=== PATIENT | female | born 1985 | race American Indian/Alaskan Native ===

== ENCOUNTER 2016-03-19 09:12 | Emergency (ER) | payer SELFPAY ==
[2016-03-19 09:28] VITALS: BP 115/77
[2016-03-19] MEDS ORDERED: TORADOL IM ONE (09:53)
--- NOTE | 2016-03-19 11:34 | Emergency Department Report ---
ED Back Pain/Injury HPI - General Chief Complaint: Back Pain/Injury Stated Complaint: LOWER BACK ACHES Time Seen by Provider: 03/19/16 09:50 Source: patient Limitations: No Limitations - History of Present Illness Initial Comments: 30 y/o female complain of back pain after prolong riding in car for 6 hours . Complaint: back pain -: This morning Similar Symptoms Previously: No Place: other (driving in car ) Radiation: none Severity: mild Severity scale (0 -10): 5 Quality: aching Consistency: intermittent Improves With: movement Worsens With: none Context: other (driving for 6 hiurs ) Associated Symptoms: denies other symptoms - Related Data Previous Rx's Medication Instructions Recorded Last Taken Type Ibuprofen [Motrin] 600 mg PO Q8H PRN #15 tablet 03/19/16 Unknown Rx methOCARBAMOL [Robaxin TAB] 500 mg PO BID #15 tab 03/19/16 Unknown Rx Allergies Allergy/AdvReac Type Severity Reaction Status Date / Time No Known Allergies Allergy Unverified 03/19/16 09:25 ED Review of Systems ROS: Stated complaint: LOWER BACK ACHES Other details as noted in HPI Constitutional: denies: chills, fever Eyes: denies: eye pain, eye discharge, vision change ENT: denies: ear pain, throat pain Respiratory: denies: cough, shortness of breath, wheezing Cardiovascular: denies: chest pain, palpitations Endocrine: no symptoms reported Gastrointestinal: denies: abdominal pain, nausea, diarrhea Genitourinary: denies: urgency, dysuria, discharge Musculoskeletal: back pain. denies: joint swelling, arthralgia Skin: denies: rash, lesions Neurological: denies: headache, weakness, paresthesias Psychiatric: denies: anxiety, depression Hematological/Lymphatic: denies: easy bleeding, easy bruising ED Past Medical Hx - Past Medical History Previous Medical History?: Yes Additional medical history: vaginal delivery x 4 - Surgical History Past Surgical History?: No - Social History Smoking Status: Former Smoker Substance Use Type: Alcohol - Medications Home Medications: Home Medications Medication Instructions Recorded Confirmed Last Taken Type Ibuprofen [Motrin] 600 mg PO Q8H PRN #15 tablet 03/19/16 Unknown Rx methOCARBAMOL [Robaxin TAB] 500 mg PO BID #15 tab 03/19/16 Unknown Rx ED Physical Exam - General Limitations: No Limitations General appearance: alert, in no apparent distress - Head Head exam: Present: atraumatic, normocephalic - Eye Eye exam: Present: normal appearance - ENT ENT exam: Present: mucous membranes moist - Neck Neck exam: Present: normal inspection - Respiratory Respiratory exam: Present: normal lung sounds bilaterally. Absent: respiratory distress - Cardiovascular Cardiovascular Exam: Present: regular rate, normal rhythm. Absent: systolic murmur, diastolic murmur, rubs, gallop - GI/Abdominal GI/Abdominal exam: Present: soft, normal bowel sounds - Extremities Exam Extremities exam: Present: normal inspection - Back Exam Back exam: Present: normal inspection, full ROM, muscle spasm. Absent: tenderness, CVA tenderness (R), CVA tenderness (L) - Neurological Exam Neurological exam: Present: alert, oriented X3 - Psychiatric Psychiatric exam: Present: normal affect, normal mood - Skin Skin exam: Present: warm, dry, intact, normal color. Absent: rash ED Course Vital Signs 03/19/16 09:25 Temperature 99.6 F Pulse Rate 108 H Respiratory 18 Rate Blood Pressure 115/77 O2 Sat by Pulse 99 Oximetry ED Medical Decision Making - Medical Decision Making low back pain after prolong driving for over 6 hour pt was given toradal 60 mg im with relief Critical care attestation.: If time is entered above; I have spent that time in minutes in the direct care of this critically ill patient, excluding procedure time. ED Disposition Clinical Impression: Low back pain Qualifiers: Chronicity: acute Back pain laterality: bilateral Sciatica presence: without sciatica Qualified Code(s): M54.5 - Low back pain Disposition: DISCHARGED TO HOME OR SELFCARE Is pt being admited?: No Does the pt Need Aspirin: No Condition: Stable Instructions: Back Pain (ED) Additional Instructions: may apply heat Prescriptions: Ibuprofen [Motrin] 600 mg PO Q8H PRN #15 tablet PRN Reason: Pain methOCARBAMOL [Robaxin TAB] 500 mg PO BID #15 tab Referrals: PRIMARY CARE, [Primary Care Provider] - 3-5 Days [facility] [Outside] - 3-5 Days Time of Disposition: 11:34
[2016-03-21] MEDS ORDERED: NACL 0.9% 250ML 250 ML ONE (20:51)
== END 2016-03-19 11:39 | disposition home or self-care (01) ==
LOC: ED 09:12
DX: M54.5 Low back pain (principal); Z87.891 Personal history of nicotine dependence
CPT/HCPCS: 96372; 99282; J1885

== ENCOUNTER 2016-03-21 12:36 | Inpatient (IN) | payer SELFPAY ==
[2016-03-21] MEDS ORDERED: TYLENOL PO ONE (13:12)
--- NOTE | 2016-03-21 14:10 | Emergency Department Report ---
Chief Complaint: Dizziness Stated Complaint: DIZZINESS/LOWER BACK PAIN Time Seen by Provider: 03/21/16 14:05 - HPI History of Present Illness: 30-year-old female comes in for complaint of lower back pain mostly on the left. Complains of neck pain and headache when she coughs. She does report feeling dizzy. Denies any nausea vomiting shortness of breath or chest pain. She is not sure when her last LMP she's been on Depo-Provera she did not receive her shot in February. - Exam Vital Signs: Vital Signs 03/21/16 03/21/16 03/21/16 12:56 13:11 13:18 Temperature 98.7 F 102.7 F H Pulse Rate 136 H Respiratory 18 18 Rate Blood Pressure 98/67 O2 Sat by Pulse 99 Oximetry Physical Exam: Patient is alert and oriented 3. Cardiovascular tachycardic abdomen soft tenderness to the left upper and left CVA. MSE screening note: Focused history and physical exam performed. Due to findings the following was ordered: CBC BMP UA hCG patient be evaluated by the main ER ED Disposition for MSE Condition: Stable
[2016-03-21 14:35] LABS: Hemoglobin 12.1 gm/dl (10.1-14.3); Mean Corpuscular HGB Conc 33 % (30-34); Mean Corpuscular Hemoglobin 30 pg (28-32); Mean Corpuscular Volume 92 fl (79-97); Platelet Count 202 K/mm3 (140-440); Red Blood Count 4.04 M/mm3 (3.65-5.03); Red Cell Distribution Width 13.7 % (13.2-15.2); White Blood Count 12.5 K/mm3 (4.5-11.0)
[2016-03-21 14:54] LABS: Bacteria,Urine 1+ /HPF (Negative); Bilirubin,Urine NEG (Negative); Blood,Urine SM (Negative); Ketones,Urine TR mg/dL (Negative); Leukocyte Esterase,Urine LG (Negative); Mucus,Urine 1+ /HPF; Nitrite,Urine NEG (Negative); WBC,Urine > 182.0 /HPF (0.0-6.0)
[2016-03-21 14:56] LABS: Anion Gap 22 mmol/L; Blood Urea Nitrogen 6 mg/dL (7-17); Calcium 8.8 mg/dL (8.4-10.2); Carbon Dioxide 21 mmol/L (22-30); Chloride 92.7 mmol/L (98-107); Glucose 103 mg/dL (65-100); Sodium 133 mmol/L (137-145)
[2016-03-21 15:03] LABS: Potassium 2.9 mmol/L (3.6-5.0)
[2016-03-21] MEDS ORDERED: TORADOL IV ONE (17:10)
[2016-03-21] MEDS ORDERED: K-DUR PO ONE (17:11)
--- NOTE | 2016-03-21 17:13 | Emergency Department Report ---
ED General Adult HPI - General Chief complaint: Dizziness Stated complaint: DIZZINESS/LOWER BACK PAIN Time Seen by Provider: 03/21/16 14:05 Source: patient, RN notes reviewed, old records reviewed Mode of arrival: Ambulatory Limitations: No Limitations - History of Present Illness Initial comments: This is a 30-year-old female, previously unknown to me. She just moved here from [place]. She presents to the ER complaining of lower back pain. The back pain is sharp. She reports the pain radiates up to her neck. There is no neck stiffness. She has a mild headache. There is no photophobia. There is no phonophobia. She also complains of dizziness. sHe complains of generalized weakness. It increases with palpation and percussion. Patient's symptoms are constant. They worse with physical exertion. They decrease with rest. -: Gradual, days(s) Location: back Severity scale (0 -10): 6 Quality: aching Improves with: rest Associated Symptoms: cough, fever/chills, headaches, loss of appetite, weakness - Related Data Previous Rx's Medication Instructions Recorded Last Taken Type Ibuprofen [Motrin] 600 mg PO Q8H PRN #15 tablet 03/19/16 Unknown Rx methOCARBAMOL [Robaxin TAB] 500 mg PO BID #15 tab 03/19/16 Unknown Rx Allergies Allergy/AdvReac Type Severity Reaction Status Date / Time No Known Allergies Allergy Unverified 03/19/16 09:25 ED Review of Systems ROS: Stated complaint: DIZZINESS/LOWER BACK PAIN Other details as noted in HPI Constitutional: chills, fever, malaise Eyes: denies: eye discharge ENT: denies: epistaxis Respiratory: cough Cardiovascular: denies: chest pain Gastrointestinal: as per HPI. denies: abdominal pain Genitourinary: frequency Musculoskeletal: back pain Skin: denies: lesions Neurological: headache, weakness ED Past Medical Hx - Past Medical History Additional medical history: vaginal delivery x 4 - Social History Smoking Status: Former Smoker Substance Use Type: Alcohol - Medications Home Medications: Home Medications Medication Instructions Recorded Confirmed Last Taken Type Ibuprofen [Motrin] 600 mg PO Q8H PRN #15 tablet 03/19/16 Unknown Rx methOCARBAMOL [Robaxin TAB] 500 mg PO BID #15 tab 03/19/16 Unknown Rx ED Physical Exam - General Limitations: No Limitations General appearance: alert, in no apparent distress - Head Head exam: Present: atraumatic, normocephalic - Eye Eye exam: Present: normal appearance, PERRL, EOMI. Absent: nystagmus - ENT ENT exam: Present: normal exam, normal orophraynx, mucous membranes moist, TM's normal bilaterally, normal external ear exam - Neck Neck exam: Present: normal inspection, full ROM, other (the neck is supple with full range of motion. There is a negative jolt accentuation test.). Absent: tenderness, meningismus - Respiratory Respiratory exam: Present: normal lung sounds bilaterally. Absent: respiratory distress, wheezes, rales, rhonchi, stridor, chest wall tenderness, accessory muscle use - Cardiovascular Cardiovascular Exam: Present: normal rhythm, tachycardia, normal heart sounds. Absent: systolic murmur, diastolic murmur, rubs, gallop - GI/Abdominal GI/Abdominal exam: Present: soft, normal bowel sounds. Absent: distended, tenderness, guarding, rebound, rigid, pulsatile mass - Extremities Exam Extremities exam: Present: normal inspection, full ROM, normal capillary refill. Absent: pedal edema, joint swelling, calf tenderness - Back Exam Back exam: Present: normal inspection, full ROM, CVA tenderness (L). Absent: tenderness - Neurological Exam Neurological exam: Present: alert, oriented X3, other (Extraocular movements intact. Tongue midline. No facial droop. Facial sensation intact to light touch in the V1, V2, V3 distribution bilaterally. 5 and 5 strength in 4 extremities.. Sensation is intact to light touch in 4 extremities.). Absent: motor sensory deficit - Psychiatric Psychiatric exam: Present: normal affect, normal mood - Skin Skin exam: Present: warm, dry, intact, normal color. Absent: rash ED Course Vital Signs 03/21/16 03/21/16 03/21/16 12:56 13:11 13:18 Temperature 98.7 F 102.7 F H Pulse Rate 136 H Respiratory 18 18 Rate Blood Pressure 98/67 Blood Pressure [Left] O2 Sat by Pulse 99 Oximetry 03/21/16 03/21/16 03/21/16 17:00 18:00 18:23 Temperature Pulse Rate 72 67 Respiratory 18 18 18 Rate Blood Pressure Blood Pressure 148/98 148/98 [Left] O2 Sat by Pulse 99 99 99 Oximetry - Reevaluation(s) Reevaluation #1: 03/21/16 18:13 Differential diagnosis: Urinary tract infection, sepsis, pyelonephritis Assessment and plan: 30-year-old female with fever, tachycardia, leukocytosis, urinary frequency, left-sided CVA tenderness, urinalysis that suggests urinary tract infection. The patient has no meningeal signs, she is not a 4 pack, she hasn't appropriate mental status, she is noted to be playing on a cellular phone. For these reasons, and her objective laboratory evidence and urinalysis , as well as her physical exam findings, I think it is very unlikely that she has meningitis. While I was interviewing the patient, she was noted to be hypotensive with a blood pressure in the 80s. Even that she meets sepsis criteria with pyelonephritis, this will have a primary care doctor, and that this is her second visit in the past few days for similar complaint, I elected to admit the patient. I have discussed the case with the Hospital physician, Dr. Guo, who graciously accepts the patient to his service. She will be loaded with 2 g of normal saline, be given 2 g of ceftriaxone, blood cultures and urine cultures to be drawn as per sepsis protocol, and she will be admitted for further management. 03/21/16 18:16 ED Medical Decision Making - Lab Data Result diagrams: 03/21/16 14:23 03/21/16 14:23 Vital Signs 03/21/16 03/21/16 03/21/16 12:56 13:11 13:18 Temperature 98.7 F 102.7 F H Pulse Rate 136 H Respiratory 18 18 Rate Blood Pressure 98/67 O2 Sat by Pulse 99 Oximetry Labs 03/21/16 03/21/16 03/21/16 14:23 14:23 14:23 WBC 12.5 H RBC 4.04 Hgb 12.1 Hct 37.0 MCV 92 MCH 30 MCHC 33 RDW 13.7 Plt Count 202 Sodium 133 L Potassium 2.9 L* Carbon Dioxide 21 L BUN 6 L Creatinine 0.6 L Estimated GFR > 60 BUN/Creatinine Ratio 10.00 Glucose 103 H Lactic Acid Calcium 8.8 Magnesium 1.9 Urine Color Urine Turbidity Urine pH Ur Specific [place] Urine Protein Urine Glucose (UA) Urine Ketones Urine Blood Urine Nitrite Ur Reducing Substances Urine Bilirubin Urine Ictotest Urine Urobilinogen Ur Leukocyte Esterase Urine WBC (Auto) Urine RBC (Auto) U Epithel Cells (Auto) Urine Bacteria (Auto) Urine Mucus Urine HCG, Qual 03/21/16 03/21/16 14:41 17:30 WBC RBC Hgb Hct MCV MCH MCHC RDW Plt Count Sodium Potassium Carbon Dioxide BUN Creatinine Estimated GFR BUN/Creatinine Ratio Glucose Lactic Acid 1.0 Calcium Magnesium Urine Color Yellow Urine Turbidity Cloudy Urine pH 6.0 Ur Specific [place] 1.013 Urine Protein 100 mg/dl Urine Glucose (UA) Neg Urine Ketones Tr Urine Blood Sm Urine Nitrite Neg Ur Reducing Substances Not Reportable Urine Bilirubin Neg Urine Ictotest Not Reportable Urine Urobilinogen 2.0 Ur Leukocyte Esterase Lg Urine WBC (Auto) > 182.0 H Urine RBC (Auto) 7.0 U Epithel Cells (Auto) 5.0 Urine Bacteria (Auto) 1+ Urine Mucus 1+ Urine HCG, Qual Negative - EKG Data When compared to previous EKG there are: previous EKG unavailable 03/21/16 18:17 sinus tachcardia 123 bpm, normal axis normal intervals no stemi Critical care attestation.: If time is entered above; I have spent that time in minutes in the direct care of this critically ill patient, excluding procedure time. ED Disposition Clinical Impression: Pyelonephritis, Hypokalemia, Sepsis Disposition: OP ADMITTED IP TO THIS HOSP Is pt being admited?: Yes Does the pt Need Aspirin: No Condition: Good
--- NOTE | 2016-03-21 17:19 | Admit Criteria Form ---
Admission Criteria Documentation: SEPSIS and OTHER FEBRILE ILLNESS, W/O FOCAL INFECTION Clinical Indications for Admission to Inpatient Care ( Place 'X' for any and all applicable criteria): Admission is indicated for ANY ONE of the following (1)(2)(3)(4): [ ] I. Bacteremia [ X]II. Suspected or identified specific infection requiring hospitalization (eg, meningitis, endocarditis) [X ]III. Hemodynamic instability [ ]IV. Altered mental status [ X]V. Failure or unavailability of outpatient antimicrobial treatment [ ]. Hypoxemia [ ]VII. Seizures [ ]VIII. High-risk febrile neutropenia [ ]IX. Need for parenteral antibiotic in patient who is likely to abuse vascular access device (eg, injection drug user) [A](7) [ ]X. Temperature greater than 104.9 degrees F (40.5 degrees C) (oral) [ ]XI. Inpatient admission required rather than observation care because of ANY ONE of the following: [ ]1) Specific infection identified that is too severe for outpatient treatment or observation care trial [ ]2) Metabolic disorder (eg, hypoglycemia, hyperglycemia, metabolic acidosis) that is severe or persistent [ ]3) Temperature greater than 103.1 degrees F (39.5 degrees C) ( oral) that is not responsive to observation care treatment [ ]4) IV fluid to replace significant ongoing (eg, for over 24 hours) losses (> 3 L/m2 per day) [ ]5) Supplemental oxygen or respiratory treatments for over 24 hours that is performable only in acute inpatient setting [ ]6) Parenteral nutrition regimen need that must be implemented on inpatient basis [ ]7) Strict or protective (eg, laminar flow) isolation [ ]8) Other condition, treatment or monitoring requiring inpatient admission Extended stay beyond goal length of stay may be needed for(1)(3) [ ]a) Sepsis or septic shock(22) [ ]b) Positive blood cultures [ ]c) Insufficient oral intake [ ]d) High-risk febrile neutropenia(29)(30) [ ]e) Continued fever and clinical instability [ ]f) Clinically active comorbid illness (e.g,heart failure, renal failure , diabetes) The original [facility] [employer] content created by [employer] has been revised. The portions of the content which have been revised are identified through the use of italic text or in bold, and [facility] [employer] has neither reviewed nor approved the modified material. All other unmodified content is copyright [facility]. Please see references footnoted in the original [facility] edition 2016 Admission Criteria Met: Yes
[2016-03-21] MEDS ORDERED: NACL 0.9% 1000 ML 2,000 ML ONE (17:58)
[2016-03-21] MEDS ORDERED: NACL 0.9% 500 ML IV SCH (18:00)
[2016-03-21] MEDS: KCL 10MEQ/100ML 100 ML IV SCH ×4 (18:21→23:20)
[2016-03-21] MEDS ORDERED: ROCEPHIN/NS 2 GM/100 ML 100 ML IV ONE (18:30)
[2016-03-21] MEDS ORDERED: MOTRIN PO PRN (19:21)
--- NOTE | 2016-03-21 19:21 | Event Note ---
Date: 03/21/16 See H/p in reports Acute pyelonephtitis Hypokalemia Cervical pain
[2016-03-21] MEDS ORDERED: MILK OF MAGNESIA PO PRN (19:22)
[2016-03-21] MEDS ORDERED: DULCOLAX PR PRN (19:22)
[2016-03-21] MEDS ORDERED: ZOFRAN IV PRN (19:22)
[2016-03-21] MEDS ORDERED: DILAUDID IV PRN (19:22)
[2016-03-21] MEDS ORDERED: TYLENOL PO PRN (19:22)
[2016-03-21] MEDS ORDERED: KCL 10MEQ/100ML 100 ML IV ONE ×2 (20:46→22:04)
[2016-03-21] MEDS ORDERED: LOVENOX SUB-Q ONE (20:46)
[2016-03-21] MEDS: LOVENOX SUB-Q SCH (21:07)
[2016-03-21] MEDS: ROBAXIN PO SCH (22:01)
[2016-03-21] MEDS: D5NS 1,000 ML IV SCH (23:20)
[2016-03-22] MEDS ORDERED: K-DUR PO ONE (00:38)
[2016-03-22] MEDS: KCL 10MEQ/100ML 100 ML IV SCH ×2 (01:29→05:21)
--- NOTE | 2016-03-22 01:44 | History and Physical Report ---
CHIEF COMPLAINT: Left flank pain and headache. HISTORY OF PRESENT ILLNESS: A 30-year-old female moved from [place] comes in for left flank pain and headache. Also, neck pain but no neck stiffness. No photophobia. Also low-grade fever. Dysuria present. PAST MEDICAL HISTORY: None. PAST SURGICAL HISTORY: Vaginal delivery x 4. SOCIAL HISTORY: Former smoker. Alcohol occasionally. FAMILY HISTORY: Hypertension. CURRENT MEDICATIONS: Ibuprofen and Robaxin. REVIEW OF SYSTEMS: Significant for left flank pain and low grade fever, fever ranging from 98.7 and 102.7 and nonspecific complaints like headache and neck pain. Otherwise, review of systems is essentially negative. LABORATORY DATA: WBC is 12.5, H and H are 12.1 and 37.0, and platelet count is 202,000. Sodium is 133, potassium is 2.9, bicarbonate is 21, BUN and creatinine are 6 and 0.6. Urine shows more than 182 white cells. Glucose is 103. Lactic acid is 1.0. PHYSICAL EXAMINATION: GENERAL: On examination, young female, cooperative during examination. VITAL SIGNS: Initial blood pressure was low 98/67, went up to 148/98, temperature is 102.7, and pulse is 136. HEENT: Unremarkable. NECK: Supple, no lymphadenopathy, no thyromegaly. LUNGS: Clear to auscultation and percussion. Good air entry. CARDIOVASCULAR: S1, S2 heard. No gallop, no murmur, no rub. Apical impulse in left fifth intercostal space and midclavicular line. ABDOMEN: Left flank tenderness present. No guarding, no rigidity. Hernial orifices are normal. EXTREMITIES: Good pedal pulses. No pedal edema. CENTRAL NERVOUS SYSTEM: Alert and oriented x 4, nonfocal exam. Labs are significant for white count of 12,500 and potassium of 2.9 and urine white cells are more than 182. ASSESSMENT AND PLAN: 1. Acute pyelonephritis. The patient is started on IV Rocephin 2 gm IV piggyback pending urine cultures. 2. Hypotension, transient up with IV fluids. Continue IV fluids. 3. Hypokalemia, being supplemented. 4. Deep venous thrombosis prophylaxis, Lovenox 40 mg subcutaneous daily. [facility]# [id number] VSM/NTS MTDD
[2016-03-22 06:51] LABS: Hematocrit 34.6 % (30.3-42.9); Hemoglobin 11.5 gm/dl (10.1-14.3); Mean Corpuscular HGB Conc 33 % (30-34); Mean Corpuscular Hemoglobin 30 pg (28-32); Mean Corpuscular Volume 91 fl (79-97); Platelet Count 192 K/mm3 (140-440); Red Cell Distribution Width 13.9 % (13.2-15.2); White Blood Count 9.6 K/mm3 (4.5-11.0)
[2016-03-22 07:16] LABS: Alanine Aminotransferase 28 units/L (7-56); Albumin 2.9 g/dL (3.9-5); Albumin/Globulin Ratio 0.9 %; Alkaline Phosphatase 83 units/L (35-129); Anion Gap 19 mmol/L; Bilirubin,Total 0.6 mg/dL (0.1-1.2); Blood Urea Nitrogen 6 mg/dL (7-17); Calcium 8.1 mg/dL (8.4-10.2); Carbon Dioxide 21 mmol/L (22-30); Chloride 102.9 mmol/L (98-107); Glucose 93 mg/dL (65-100); Potassium 3.8 mmol/L (3.6-5.0); Sodium 139 mmol/L (137-145); Total Protein 6.1 g/dL (6.3-8.2)
[2016-03-22 08:52] LABS: Anisocytosis 1+; Basophils % (Manual) 0 % (0.0-1.8); Blastocytes % (Manual) 0 %; Eosinophils % (Manual) 0 % (0.0-4.3)
[2016-03-22 08:53] LABS: Diff Status Complete; Poikilocytosis 1+
[2016-03-22] MEDS: D5NS 1,000 ML IV SCH (11:00)
[2016-03-22] MEDS: LOVENOX SUB-Q SCH (11:06)
[2016-03-22] MEDS: ROBAXIN PO SCH ×2 (11:06→22:26)
[2016-03-22] MEDS ORDERED: FLUARIX QUAD 2016-2017(36 MOS+) IM ONE (12:00)
--- NOTE | 2016-03-22 16:36 | Progress Note ---
Assessment and Plan Assessment and plan: Sepsis with UTI Acute left pyelonephritis Hypotension, the due to dehydration and sepsis Hypokalemia, likely due to poor oral intake Plan: Continue IV antibiotic Monitor vitals Follow urine culture and blood culture Replace electrolytes as needed Monitor BMP History Interval history: Patient seen and examined. Medical records and medication list reviewed. No acute event overnight noted by the RN. Patient denies any chest pain or difficulty breathing. Patient is tolerating diet. Vision does have left flank pain, states that is better than yesterday This morning but her temperature was 103F Discussed plan of care at bedside with patient. Hospitalist Physical - Physical exam Narrative exam: GENERAL: well-developed and well-nourished -[place] female lying on bed appeared to be in no discomfort. HEENT: Normocephalic. Atraumatic. No conjunctival congestion or icterus. Patient has moist mucous membranes. NECK: Supple. Trachea midline. CHEST/LUNGS: Clear to auscultated bilaterally, breathing nonlabored. No wheezes crackles or rhonchi. HEART/CARDIOVASCULAR: Regular in rate and rhythm. S1 and S2 positive. ABDOMEN: Abdomen is soft, left CVA tenderness. Patient has normal bowel sounds. SKIN: There is no rash. Warm and dry. NEURO: No focal motor deficit. Follows command. MUSCULOSKELETAL: No joint effusion or tenderness. EXTRIMITY: No edema, no cyanosis or clubbing. PSYCH: Cooperative. - Constitutional Vitals: Temp Pulse Resp BP Pulse Ox 103 F H 100 H 20 98/67 99 03/22/16 07:05 03/22/16 07:05 03/22/16 07:05 03/22/16 07:05 03/22/16 07:05 Results - Labs CBC & Chem 7: 03/22/16 06:06 03/22/16 06:06 Labs: Laboratory Last Values WBC 9.6 K/mm3 (4.5-11.0) 03/22/16 06:06 RBC 3.80 M/mm3 (3.65-5.03) 03/22/16 06:06 Hgb 11.5 gm/dl (10.1-14.3) 03/22/16 06:06 Hct 34.6 % (30.3-42.9) 03/22/16 06:06 MCV 91 fl (79-97) 03/22/16 06:06 MCH 30 pg (28-32) 03/22/16 06:06 MCHC 33 % (30-34) 03/22/16 06:06 RDW 13.9 % (13.2-15.2) 03/22/16 06:06 Plt Count 192 K/mm3 (140-440) 03/22/16 06:06 [place] % (Auto) Crm Marketing Analyst 03/22/16 06:06 Add Manual Diff Complete 03/22/16 06:06 Total Counted 100 03/22/16 06:06 Seg Neuts % (Manual) 68.0 % (40.0-70.0) 03/22/16 06:06 Band Neutrophils % 7.0 % 03/22/16 06:06 Lymphocytes % (Manual) 9.0 % (13.4-35.0) L 03/22/16 06:06 Reactive Lymphs % (Man) 2.0 % 03/22/16 06:06 Monocytes % (Manual) 14.0 % (0.0-7.3) H 03/22/16 06:06 Eosinophils % (Manual) 0 % (0.0-4.3) 03/22/16 06:06 Basophils % (Manual) 0 % (0.0-1.8) 03/22/16 06:06 Metamyelocytes % 0 % 03/22/16 06:06 Myelocytes % 0 % 03/22/16 06:06 Promyelocytes % 0 % 03/22/16 06:06 Blast Cells % 0 % 03/22/16 06:06 Nucleated RBC % Not Reportable 03/22/16 06:06 Seg Neutrophils # Man 6.5 K/mm3 (1.8-7.7) 03/22/16 06:06 Band Neutrophils # 0.7 K/mm3 03/22/16 06:06 Lymphocytes # (Manual) 0.9 K/mm3 (1.2-5.4) L 03/22/16 06:06 Abs React Lymphs (Man) 0.2 K/mm3 03/22/16 06:06 Monocytes # (Manual) 1.3 K/mm3 (0.0-0.8) H 03/22/16 06:06 Eosinophils # (Manual) 0.0 K/mm3 (0.0-0.4) 03/22/16 06:06 Basophils # (Manual) 0.0 K/mm3 (0.0-0.1) 03/22/16 06:06 Metamyelocytes # 0.0 K/mm3 03/22/16 06:06 Myelocytes # 0.0 K/mm3 03/22/16 06:06 Promyelocytes # 0.0 K/mm3 03/22/16 06:06 Blast Cells # 0.0 K/mm3 03/22/16 06:06 WBC Morphology Not Reportable 03/22/16 06:06 Hypersegmented Neuts Not Reportable 03/22/16 06:06 Hyposegmented Neuts Not Reportable 03/22/16 06:06 Hypogranular Neuts Not Reportable 03/22/16 06:06 Smudge Cells Not Reportable 03/22/16 06:06 Toxic Granulation Not Reportable 03/22/16 06:06 Toxic Vacuolation Not Reportable 03/22/16 06:06 Dohle Bodies Not Reportable 03/22/16 06:06 Pelger-Huet Anomaly Not Reportable 03/22/16 06:06 Karsten Rods Not Reportable 03/22/16 06:06 Platelet Estimate Appears normal 03/22/16 06:06 Clumped Platelets Not Reportable 03/22/16 06:06 Plt Clumps, EDTA Not Reportable 03/22/16 06:06 Large Platelets Not Reportable 03/22/16 06:06 Giant Platelets Not Reportable 03/22/16 06:06 Platelet Satelliting Not Reportable 03/22/16 06:06 Plt Morphology Comment Not Reportable 03/22/16 06:06 RBC Morphology Not Reportable 03/22/16 06:06 Dimorphic RBCs Not Reportable 03/22/16 06:06 Polychromasia Not Reportable 03/22/16 06:06 Hypochromasia Not Reportable 03/22/16 06:06 Poikilocytosis 1+ 03/22/16 06:06 Anisocytosis 1+ 03/22/16 06:06 Microcytosis Not Reportable 03/22/16 06:06 Macrocytosis Not Reportable 03/22/16 06:06 Spherocytes Not Reportable 03/22/16 06:06 Pappenheimer Bodies Not Reportable 03/22/16 06:06 Sickle Cells Not Reportable 03/22/16 06:06 Target Cells Not Reportable 03/22/16 06:06 Tear Drop Cells Not Reportable 03/22/16 06:06 Ovalocytes Not Reportable 03/22/16 06:06 Helmet Cells Not Reportable 03/22/16 06:06 [place] Bodies Not Reportable 03/22/16 06:06 [place] Rings Not Reportable 03/22/16 06:06 Jony Cells Not Reportable 03/22/16 06:06 Bite Cells Not Reportable 03/22/16 06:06 Crenated Cell Not Reportable 03/22/16 06:06 Elliptocytes Not Reportable 03/22/16 06:06 Acanthocytes (Spur) Not Reportable 03/22/16 06:06 Rouleaux Not Reportable 03/22/16 06:06 Hemoglobin C Crystals Not Reportable 03/22/16 06:06 Schistocytes Not Reportable 03/22/16 06:06 Malaria parasites Not Reportable 03/22/16 06:06 Allan Bodies Not Reportable 03/22/16 06:06 Hem Pathologist Commnt No 03/22/16 06:06 Sodium 139 mmol/L (137-145) 03/22/16 06:06 Potassium 3.8 mmol/L (3.6-5.0) D 03/22/16 06:06 Chloride 102.9 mmol/L (98-107) 03/22/16 06:06 Carbon Dioxide 21 mmol/L (22-30) L 03/22/16 06:06 Anion Gap 19 mmol/L 03/22/16 06:06 BUN 6 mg/dL (7-17) L 03/22/16 06:06 Creatinine 0.4 mg/dL (0.7-1.2) L 03/22/16 06:06 Estimated GFR > 60 ml/min 03/22/16 06:06 BUN/Creatinine Ratio 15.00 % 03/22/16 06:06 Glucose 93 mg/dL (65-100) 03/22/16 06:06 Lactic Acid 1.0 mmol/L (0.7-2.0) 03/21/16 17:30 Calcium 8.1 mg/dL (8.4-10.2) L 03/22/16 06:06 Magnesium 1.9 mg/dL (1.7-2.3) 03/21/16 14:23 Total Bilirubin 0.6 mg/dL (0.1-1.2) 03/22/16 06:06 AST 35 units/L (5-40) 03/22/16 06:06 ALT 28 units/L (7-56) 03/22/16 06:06 Alkaline Phosphatase 83 units/L (35-129) 03/22/16 06:06 Total Protein 6.1 g/dL (6.3-8.2) L 03/22/16 06:06 Albumin 2.9 g/dL (3.9-5) L 03/22/16 06:06 Albumin/Globulin Ratio 0.9 % 03/22/16 06:06 Urine Color Yellow (Yellow) 03/21/16 14:41 Urine Turbidity Cloudy (Clear) 03/21/16 14:41 Urine pH 6.0 (5.0-7.0) 03/21/16 14:41 Ur Specific [place] 1.013 (1.003-1.030) 03/21/16 14:41 Urine Protein 100 mg/dl mg/dL (Negative) 03/21/16 14:41 Urine Glucose (UA) Neg mg/dL (Negative) 03/21/16 14:41 Urine Ketones Tr mg/dL (Negative) 03/21/16 14:41 Urine Blood Sm (Negative) 03/21/16 14:41 Urine Nitrite Neg (Negative) 03/21/16 14:41 Ur Reducing Substances Not Reportable 03/21/16 14:41 Urine Bilirubin Neg (Negative) 03/21/16 14:41 Urine Ictotest Not Reportable 03/21/16 14:41 Urine Urobilinogen 2.0 mg/dL (<2.0) 03/21/16 14:41 Ur Leukocyte Esterase Lg (Negative) 03/21/16 14:41 Urine WBC (Auto) > 182.0 /HPF (0.0-6.0) H 03/21/16 14:41 Urine RBC (Auto) 7.0 /HPF (0.0-6.0) 03/21/16 14:41 U Epithel Cells (Auto) 5.0 /HPF (0-13.0) 03/21/16 14:41 Urine Bacteria (Auto) 1+ /HPF (Negative) 03/21/16 14:41 Urine Mucus 1+ /HPF 03/21/16 14:41 Urine HCG, Qual Negative (Negative) 03/21/16 14:41
[2016-03-22] MEDS ORDERED: ROCEPHIN/NS 2 GM/100 ML 100 ML IV SCH (22:00)
[2016-03-23] MEDS: ROBAXIN PO SCH (09:51)
[2016-03-23] MEDS: LOVENOX SUB-Q SCH (09:51)
[2016-03-23] MEDS ORDERED: ZOSYN/NS 4.5GM/100ML 100 ML IV SCH (14:00)
--- NOTE | 2016-03-23 15:16 | Progress Note ---
Hospitalist Physical - Constitutional Vitals: Temp Pulse Resp BP Pulse Ox 99.4 F 80 18 105/76 100 03/23/16 12:05 03/23/16 07:15 03/23/16 12:05 03/23/16 07:15 03/23/16 12:05 Results - Labs CBC & Chem 7: 03/22/16 06:06 03/22/16 06:06 Labs: Laboratory Last Values WBC 9.6 K/mm3 (4.5-11.0) 03/22/16 06:06 RBC 3.80 M/mm3 (3.65-5.03) 03/22/16 06:06 Hgb 11.5 gm/dl (10.1-14.3) 03/22/16 06:06 Hct 34.6 % (30.3-42.9) 03/22/16 06:06 MCV 91 fl (79-97) 03/22/16 06:06 MCH 30 pg (28-32) 03/22/16 06:06 MCHC 33 % (30-34) 03/22/16 06:06 RDW 13.9 % (13.2-15.2) 03/22/16 06:06 Plt Count 192 K/mm3 (140-440) 03/22/16 06:06 [place] % (Auto) Data Processing Supervisor 03/22/16 06:06 Add Manual Diff Complete 03/22/16 06:06 Total Counted 100 03/22/16 06:06 Seg Neuts % (Manual) 68.0 % (40.0-70.0) 03/22/16 06:06 Band Neutrophils % 7.0 % 03/22/16 06:06 Lymphocytes % (Manual) 9.0 % (13.4-35.0) L 03/22/16 06:06 Reactive Lymphs % (Man) 2.0 % 03/22/16 06:06 Monocytes % (Manual) 14.0 % (0.0-7.3) H 03/22/16 06:06 Eosinophils % (Manual) 0 % (0.0-4.3) 03/22/16 06:06 Basophils % (Manual) 0 % (0.0-1.8) 03/22/16 06:06 Metamyelocytes % 0 % 03/22/16 06:06 Myelocytes % 0 % 03/22/16 06:06 Promyelocytes % 0 % 03/22/16 06:06 Blast Cells % 0 % 03/22/16 06:06 Nucleated RBC % Not Reportable 03/22/16 06:06 Seg Neutrophils # Man 6.5 K/mm3 (1.8-7.7) 03/22/16 06:06 Band Neutrophils # 0.7 K/mm3 03/22/16 06:06 Lymphocytes # (Manual) 0.9 K/mm3 (1.2-5.4) L 03/22/16 06:06 Abs React Lymphs (Man) 0.2 K/mm3 03/22/16 06:06 Monocytes # (Manual) 1.3 K/mm3 (0.0-0.8) H 03/22/16 06:06 Eosinophils # (Manual) 0.0 K/mm3 (0.0-0.4) 03/22/16 06:06 Basophils # (Manual) 0.0 K/mm3 (0.0-0.1) 03/22/16 06:06 Metamyelocytes # 0.0 K/mm3 03/22/16 06:06 Myelocytes # 0.0 K/mm3 03/22/16 06:06 Promyelocytes # 0.0 K/mm3 03/22/16 06:06 Blast Cells # 0.0 K/mm3 03/22/16 06:06 WBC Morphology Not Reportable 03/22/16 06:06 Hypersegmented Neuts Not Reportable 03/22/16 06:06 Hyposegmented Neuts Not Reportable 03/22/16 06:06 Hypogranular Neuts Not Reportable 03/22/16 06:06 Smudge Cells Not Reportable 03/22/16 06:06 Toxic Granulation Not Reportable 03/22/16 06:06 Toxic Vacuolation Not Reportable 03/22/16 06:06 Dohle Bodies Not Reportable 03/22/16 06:06 Pelger-Huet Anomaly Not Reportable 03/22/16 06:06 Karsten Rods Not Reportable 03/22/16 06:06 Platelet Estimate Appears normal 03/22/16 06:06 Clumped Platelets Not Reportable 03/22/16 06:06 Plt Clumps, EDTA Not Reportable 03/22/16 06:06 Large Platelets Not Reportable 03/22/16 06:06 Giant Platelets Not Reportable 03/22/16 06:06 Platelet Satelliting Not Reportable 03/22/16 06:06 Plt Morphology Comment Not Reportable 03/22/16 06:06 RBC Morphology Not Reportable 03/22/16 06:06 Dimorphic RBCs Not Reportable 03/22/16 06:06 Polychromasia Not Reportable 03/22/16 06:06 Hypochromasia Not Reportable 03/22/16 06:06 Poikilocytosis 1+ 03/22/16 06:06 Anisocytosis 1+ 03/22/16 06:06 Microcytosis Not Reportable 03/22/16 06:06 Macrocytosis Not Reportable 03/22/16 06:06 Spherocytes Not Reportable 03/22/16 06:06 Pappenheimer Bodies Not Reportable 03/22/16 06:06 Sickle Cells Not Reportable 03/22/16 06:06 Target Cells Not Reportable 03/22/16 06:06 Tear Drop Cells Not Reportable 03/22/16 06:06 Ovalocytes Not Reportable 03/22/16 06:06 Helmet Cells Not Reportable 03/22/16 06:06 [place] Bodies Not Reportable 03/22/16 06:06 [place] Rings Not Reportable 03/22/16 06:06 [place] Cells Not Reportable 03/22/16 06:06 Bite Cells Not Reportable 03/22/16 06:06 Crenated Cell Not Reportable 03/22/16 06:06 Elliptocytes Not Reportable 03/22/16 06:06 Acanthocytes (Spur) Not Reportable 03/22/16 06:06 Rouleaux Not Reportable 03/22/16 06:06 Hemoglobin C Crystals Not Reportable 03/22/16 06:06 Schistocytes Not Reportable 03/22/16 06:06 Malaria parasites Not Reportable 03/22/16 06:06 Allan Bodies Not Reportable 03/22/16 06:06 Hem Pathologist Commnt No 03/22/16 06:06 Sodium 139 mmol/L (137-145) 03/22/16 06:06 Potassium 3.8 mmol/L (3.6-5.0) D 03/22/16 06:06 Chloride 102.9 mmol/L (98-107) 03/22/16 06:06 Carbon Dioxide 21 mmol/L (22-30) L 03/22/16 06:06 Anion Gap 19 mmol/L 03/22/16 06:06 BUN 6 mg/dL (7-17) L 03/22/16 06:06 Creatinine 0.4 mg/dL (0.7-1.2) L 03/22/16 06:06 Estimated GFR > 60 ml/min 03/22/16 06:06 BUN/Creatinine Ratio 15.00 % 03/22/16 06:06 Glucose 93 mg/dL (65-100) 03/22/16 06:06 Lactic Acid 1.0 mmol/L (0.7-2.0) 03/21/16 17:30 Calcium 8.1 mg/dL (8.4-10.2) L 03/22/16 06:06 Magnesium 1.9 mg/dL (1.7-2.3) 03/21/16 14:23 Total Bilirubin 0.6 mg/dL (0.1-1.2) 03/22/16 06:06 AST 35 units/L (5-40) 03/22/16 06:06 ALT 28 units/L (7-56) 03/22/16 06:06 Alkaline Phosphatase 83 units/L (35-129) 03/22/16 06:06 Total Protein 6.1 g/dL (6.3-8.2) L 03/22/16 06:06 Albumin 2.9 g/dL (3.9-5) L 03/22/16 06:06 Albumin/Globulin Ratio 0.9 % 03/22/16 06:06 Urine Color Yellow (Yellow) 03/21/16 14:41 Urine Turbidity Cloudy (Clear) 03/21/16 14:41 Urine pH 6.0 (5.0-7.0) 03/21/16 14:41 Ur Specific [place] 1.013 (1.003-1.030) 03/21/16 14:41 Urine Protein 100 mg/dl mg/dL (Negative) 03/21/16 14:41 Urine Glucose (UA) Neg mg/dL (Negative) 03/21/16 14:41 Urine Ketones Tr mg/dL (Negative) 03/21/16 14:41 Urine Blood Sm (Negative) 03/21/16 14:41 Urine Nitrite Neg (Negative) 03/21/16 14:41 Ur Reducing Substances Not Reportable 03/21/16 14:41 Urine Bilirubin Neg (Negative) 03/21/16 14:41 Urine Ictotest Not Reportable 03/21/16 14:41 Urine Urobilinogen 2.0 mg/dL (<2.0) 03/21/16 14:41 Ur Leukocyte Esterase Lg (Negative) 03/21/16 14:41 Urine WBC (Auto) > 182.0 /HPF (0.0-6.0) H 03/21/16 14:41 Urine RBC (Auto) 7.0 /HPF (0.0-6.0) 03/21/16 14:41 U Epithel Cells (Auto) 5.0 /HPF (0-13.0) 03/21/16 14:41 Urine Bacteria (Auto) 1+ /HPF (Negative) 03/21/16 14:41 Urine Mucus 1+ /HPF 03/21/16 14:41 Urine HCG, Qual Negative (Negative) 03/21/16 14:41
--- NOTE | 2016-03-23 17:12 | Discharge Summary ---
Providers - Providers Date of Admission: 03/21/16 19:22 Date of discharge: 03/23/16 Attending physician: MADDIE BAIRD Primary care physician: KATINA DAVEY MD Hospitalization Condition: Good Hospital course: Discharge diagnosis: Sepsis with UTI Acute left pyelonephritis Hypotension, the due to dehydration and sepsis Hypokalemia, likely due to poor oral intake Disposition: DISCHARGED TO HOME OR SELFCARE Time spent for discharge: 32 minutes Core Measure Documentation - Palliative Care Palliative Care/ Comfort Measures: Not Applicable - Core Measures Any of the following diagnoses?: none Exam - Physical Exam Narrative exam: GENERAL: well-developed and well-nourished -[place] female lying on bed appeared to be in no discomfort. HEENT: Normocephalic. Atraumatic. No conjunctival congestion or icterus. Patient has moist mucous membranes. NECK: Supple. Trachea midline. CHEST/LUNGS: Clear to auscultated bilaterally, breathing nonlabored. No wheezes crackles or rhonchi. HEART/CARDIOVASCULAR: Regular in rate and rhythm. S1 and S2 positive. ABDOMEN: Abdomen is soft, left CVA tenderness. Patient has normal bowel sounds. SKIN: There is no rash. Warm and dry. NEURO: No focal motor deficit. Follows command. MUSCULOSKELETAL: No joint effusion or tenderness. EXTRIMITY: No edema, no cyanosis or clubbing. PSYCH: Cooperative. - Constitutional Vitals: Temp Pulse Resp BP Pulse Ox 98.2 F 93 H 17 102/68 100 03/23/16 15:25 03/23/16 15:25 03/23/16 15:25 03/23/16 15:25 03/23/16 12:05 Plan Activity: advance as tolerated Weight Bearing Status: Weight Bear as Tolerated Diet: regular Follow up with: PRIMARY CARE, [Primary Care Provider] - 3-5 Days Prescriptions: Levofloxacin [Levaquin] 750 mg PO QDAY #5 tablet
[2016-03-23 19:20] VITALS: BP 109/62
== END 2016-03-23 20:06 | disposition home or self-care (01) | DRG 872 ==
LOC: ED 12:36 → 3A 19:22
PROVIDERS: ADMIT Internal Medicine; ATTEND Internal Medicine
DX: A41.9 Sepsis, unspecified organism (principal); N10 Acute pyelonephritis; N39.0 Urinary tract infection, site not specified; I95.9 Hypotension, unspecified; E87.6 Hypokalemia; Z87.891 Personal history of nicotine dependence; Z82.49 Family history of ischemic heart disease and other diseases of the circulatory system
CPT/HCPCS: 36415; 80048; 80053; 81001; 81025; 82140; 83735; 85007; 85025; 85027; 87040; 87076; 87086; 87186; 90686; 93005; 93010; 96361; 96372; 96374; 96375; J0696; J1650; J1885; J2543; J3480; J7030; J7042; J7050

== ENCOUNTER 2017-02-08 13:46 | Emergency (ER) | payer MEDICAID, OTHER ==
[2017-02-08 14:57] LABS: Bilirubin,Urine NEG (Negative); Blood,Urine MOD (Negative); Ketones,Urine NEG (Negative); Leukocyte Esterase,Urine LG (Negative); Mucus,Urine FEW /HPF; Nitrite,Urine POS (Negative); Urobilinogen,Urine < 2.0 mg/dL (<2.0)
[2017-02-08 14:58] LABS: WBC,Urine > 182.0 /HPF (0.0-6.0)
[2017-02-08] MEDS ORDERED: ROCEPHIN/NS 1 GM/50 ML 1 GM/50 ML BAG IV ONE (16:43)
[2017-02-08] MEDS ORDERED: NACL 0.9% 1000 ML 1,000 ML IV ONE (16:43)
[2017-02-08 17:00] LABS: Basophils % (Auto) 0.3 % (0.0-1.8); Eosinophils % (Auto) 0.6 % (0.0-4.3); Hematocrit 39.8 % (30.3-42.9); Hemoglobin 13.2 gm/dl (10.1-14.3); Mean Corpuscular HGB Conc 33 % (30-34); Mean Corpuscular Hemoglobin 31 pg (28-32); Mean Corpuscular Volume 94 fl (79-97); Platelet Count 211 K/mm3 (140-440); Red Blood Count 4.25 M/mm3 (3.65-5.03); Red Cell Distribution Width 13.3 % (13.2-15.2); White Blood Count 7.5 K/mm3 (4.5-11.0)
[2017-02-08] MEDS ORDERED: cefTRIAXone 1 GM in NACL 0.9% 20 ML IV ONE (17:00)
[2017-02-08 17:19] LABS: Anion Gap 18 mmol/L; BUN/Creatinine Ratio 18; Blood Urea Nitrogen 9 mg/dL (7-17); Calcium 9.5 mg/dL (8.4-10.2); Carbon Dioxide 27 mmol/L (22-30); Chloride 99.6 mmol/L (98-107); Glucose 74 mg/dL (65-100); Potassium 4.1 mmol/L (3.6-5.0); Sodium 140 mmol/L (137-145)
--- NOTE | 2017-02-08 17:34 | Emergency Department Report ---
ED Back Pain/Injury HPI - General Chief Complaint: Back Pain/Injury Stated Complaint: LOWER BACK PAIN Time Seen by Provider: 02/08/17 16:21 Source: patient Limitations: No Limitations - History of Present Illness Initial Comments: This is a 31-year-old female nontoxic, well nourished in appearance, no acute signs of distress presents to the ED with c/o of left sided back pain x1 day. Patient denies any trauma to the region. Patient denies any dysuria, polyuria, bladder and bowel instability, hematuria, fever, chills, headache, nausea, vomiting, chest pain, shortness of breathe, vaginal discharge, vaginal bleeding , and abdominal pain. Patient states urine has foul odor. Denies any allergies or PMH. MD Complaint: back pain -: days(s) (1) Similar Symptoms Previously: No Place: home Radiation: none Severity: mild Severity scale (0 -10): 8 Quality: aching Consistency: constant Improves With: none Worsens With: none Associated Symptoms: denies other symptoms. denies: confusion, weakness, chest pain, numbness, difficulty walking, cough, difficulty urinating, diaphoresis, incontinence, fever/chills, constipation, headaches, abdominal pain, loss of appetite, malaise, nausea/vomiting, rash, seizure, shortness of breath, syncope - Related Data Previous Rx's Medication Instructions Recorded Last Taken Type Ibuprofen [Motrin 600 MG tab] 600 mg PO Q8H PRN #15 tablet 03/19/16 Unknown Rx methOCARBAMOL [Robaxin TAB] 500 mg PO BID #15 tab 03/19/16 Unknown Rx Levofloxacin [Levaquin] 750 mg PO QDAY #5 tablet 03/23/16 Unknown Rx Levofloxacin [Levaquin TAB] 750 mg PO QDAY #7 tablet 02/08/17 Unknown Rx Allergies Allergy/AdvReac Type Severity Reaction Status Date / Time No Known Allergies Allergy Unverified 03/19/16 09:25 ED Review of Systems ROS: Stated complaint: LOWER BACK PAIN Other details as noted in HPI Constitutional: denies: chills, fever Eyes: denies: eye pain, eye discharge, vision change ENT: denies: ear pain, throat pain Respiratory: denies: cough, shortness of breath, wheezing Cardiovascular: denies: chest pain, palpitations Endocrine: no symptoms reported Gastrointestinal: denies: abdominal pain, nausea, diarrhea Genitourinary: denies: urgency, dysuria, discharge Musculoskeletal: back pain. denies: joint swelling, arthralgia Skin: denies: rash, lesions Neurological: denies: headache, weakness, paresthesias Psychiatric: denies: anxiety, depression Hematological/Lymphatic: denies: easy bleeding, easy bruising ED Past Medical Hx - Past Medical History Previous Medical History?: No Additional medical history: vaginal delivery x 4 - Surgical History Past Surgical History?: No - Social History Smoking Status: Never Smoker Substance Use Type: None - Medications Home Medications: Home Medications Medication Instructions Recorded Confirmed Last Taken Type Ibuprofen [Motrin 600 MG tab] 600 mg PO Q8H PRN #15 tablet 03/19/16 Unknown Rx methOCARBAMOL [Robaxin TAB] 500 mg PO BID #15 tab 03/19/16 Unknown Rx Levofloxacin [Levaquin] 750 mg PO QDAY #5 tablet 03/23/16 Unknown Rx Levofloxacin [Levaquin TAB] 750 mg PO QDAY #7 tablet 02/08/17 Unknown Rx ED Physical Exam - General Limitations: No Limitations General appearance: alert, in no apparent distress - Head Head exam: Present: atraumatic, normocephalic, normal inspection - Eye Eye exam: Present: normal appearance, PERRL, EOMI. Absent: scleral icterus, conjunctival injection, nystagmus, periorbital swelling, periorbital tenderness Pupils: Present: normal accommodation - ENT ENT exam: Present: normal exam, normal orophraynx, mucous membranes moist, TM's normal bilaterally, normal external ear exam - Neck Neck exam: Present: normal inspection, full ROM. Absent: tenderness, meningismus, lymphadenopathy, thyromegaly - Respiratory Respiratory exam: Present: normal lung sounds bilaterally. Absent: respiratory distress, wheezes, rales, rhonchi, stridor, chest wall tenderness, decreased breath sounds, prolonged expiratory - Cardiovascular Cardiovascular Exam: Present: regular rate, normal rhythm, normal heart sounds. Absent: bradycardia, tachycardia, irregular rhythm, systolic murmur, diastolic murmur, rubs, gallop - GI/Abdominal GI/Abdominal exam: Present: soft, normal bowel sounds. Absent: distended, tenderness, guarding, rebound, rigid, diminished bowel sounds - Rectal Rectal exam: Present: deferred - Extremities Exam Extremities exam: Present: normal inspection, full ROM, normal capillary refill. Absent: tenderness, pedal edema, joint swelling, calf tenderness - Back Exam Back exam: Present: normal inspection, full ROM, CVA tenderness (R). Absent: CVA tenderness (L), muscle spasm, paraspinal tenderness, vertebral tenderness, rash noted - Expanded Back Exam Expanded Back exam: Present: normal rectal tone (as per patient). Absent: saddle anesthesia Back exam: Negative Straight Leg Raising: Left, Right - Neurological Exam Neurological exam: Present: alert, oriented X3, CN II-XII intact, normal gait, reflexes normal - Psychiatric Psychiatric exam: Present: normal affect, normal mood - Skin Skin exam: Present: warm, dry, intact, normal color. Absent: rash ED Course Vital Signs 02/08/17 02/08/17 02/08/17 13:49 19:07 20:19 Temperature 98.1 F Pulse Rate 78 68 Respiratory 18 18 18 Rate Blood Pressure 100/58 Blood Pressure 98/57 [Left] O2 Sat by Pulse 100 100 Oximetry - Reevaluation(s) Reevaluation #1: 02/08/17 17:36 Patient is speaking in full sentences with no signs of distress noted. - Consultations Consultation #1: 02/08/17 21:32 Dr. Martini has been consulted by patient history, physical exam and imaging studies and agrees with this plan of care and ED plan of care with follow-up. ED Medical Decision Making - Lab Data Result diagrams: 02/08/17 16:41 02/08/17 16:41 - Medical Decision Making This is a 31-year-old female that presents with a urinary tract infection. Patient is stable and was examined by me. UA indicates UTI. This tenderness. CT contrast of abdomen/pelvis obtained and the radiologist. Patient was notified of CT results and was instructed to follow up with a [facility] for abnormal bulky appearing. Due to this findings patient received 1 g of azithromycin. Patient also received 1 g IV of Rocephin for possible pyelonephritis prior to CT findings. Patient received 1 L of normal saline. Patient is discharged with levofloxacin 7 days. Patient was instructed to follow up with a primary care doctor/toaster element repairer in 3-5 days or if symptoms worsen and continue to return to emergency room as soon as possible. At time time of discharge, the patient does not seem toxic or ill in appearance. No acute signs of distress noted. Patient agrees to discharge treatment plan of care. No further questions noted by the patient. Critical care attestation.: If time is entered above; I have spent that time in minutes in the direct care of this critically ill patient, excluding procedure time. ED Disposition Clinical Impression: UTI (urinary tract infection) Qualifiers: Urinary tract infection type: site unspecified Hematuria presence: with hematuria Qualified Code(s): N39.0 - Urinary tract infection, site not specified ; R31.9 - Hematuria, unspecified; R31.9 - Hematuria, unspecified Disposition: - TO HOME OR SELFCARE Is pt being admited?: No Does the pt Need Aspirin: No Condition: Stable Instructions: Urinary Tract Infection in Women (ED), Levofloxacin (By mouth) Additional Instructions: Follow up with a primary care doctor/toaster element repairer in 3-5 days or if symptoms worsen and continue to return to emergency room as soon as possible. Do not consume any alcohol while taking antibiotics Prescriptions: Levofloxacin [Levaquin TAB] 750 mg PO QDAY #7 tablet Referrals: CHANDRIKA LUO JR, MD [Primary Care Provider] - 3-5 Days [facility] [Outside] - 3-5 Days [facility] [Outside] - 3-5 Days LUIS ALBERTO HOFFMANN MD [Staff Physician] - 3-5 Days Forms: Work/School Release Form(ED)
[2017-02-08 19:08] VITALS: BP 98/57
[2017-02-08] MEDS ORDERED: TORADOL IV ONE ×2 (20:08)
--- NOTE | 2017-02-08 21:23 | Cat Scan Report ---
FINAL REPORT EXAM: CT ABDOMEN PELVIS W CON HISTORY: cva tenderness with abnormal UA TECHNIQUE: Axial images were performed from the lung bases to the pubic symphysis following IV contrast administration. Multiplanar reformats are performed on the acquisition scanner. Comparison: None FINDINGS: Clear lung bases. Normal enhancement of the liver. There are a couple of scattered hypodensities in the posterior segment right lobe measuring 4.3 and 9.8 millimeters. There is a 3rd 5 millimeter hypodensity in the liver in segment 6. There is normal enhancement and appearance of the spleen, pancreas, gallbladder, bilateral adrenal glands, and bilateral kidneys. The stomach is filled with debris. It is distended. There is significant fecal retention. The sigmoid colon is redundant and air-filled. There are multiple small retroperitoneal lymph nodes. The uterus is ill-defined. It appears to be thick walled. It is normally anteverted. Endometrium is thickened measuring up to 1.9 centimeters. Urinary bladder is moderately distended. There appears to be free fluid in the cul-de-sac. Ovaries are poorly delineated. There is no hydronephrosis or renal/ureteral stone identified. Delayed phase images show normal excretion of contrast from the kidneys with segmental visualization of the ureters. There appear to be multiple functional cystic lesions on what appears to be the left ovary in the left lower quadrant, the largest measuring 1.2 millimeters. IMPRESSION: No evidence of stone disease. Enlarged bulky appearing ill-defined uterus. PID cannot be excluded. The left ovary appears to be projecting in the left lower quadrant next to the sigmoid colon and has multiple small functional appearing cysts. Recommend transvesical and endovaginal pelvic ultrasound exam and correlation with physical exam. Redundant sigmoid colon is air-filled but not obstructed. There is significant fecal retention. There are hypodense lesions in the liver measuring less than centimeter but with Hounsfield units not qualifying for simple cysts. This could be further assessed with ultrasound.
[2017-02-08] MEDS ORDERED: ZITHROMAX PO ONE (21:32)
== END 2017-02-08 21:57 | disposition home or self-care (01) ==
LOC: ED 13:46
DX: N39.0 Urinary tract infection, site not specified (principal); R10.9 Unspecified abdominal pain
CPT/HCPCS: 36415; 74177; 80048; 81001; 81025; 85025; 96365; 96375; 99284; J0696; J1885; J7030; Q9967

== ENCOUNTER 2017-02-10 16:40 | Emergency (ER) | payer MEDICAID, OTHER ==
[2017-02-10 16:48] VITALS: BP 93/50
[2017-02-10] MEDS ORDERED: PEPCID PO ONE (18:40)
[2017-02-10] MEDS ORDERED: DELTASONE PO ONE (18:40)
--- NOTE | 2017-02-10 18:40 | Emergency Department Report ---
HPI - General Chief Complaint: Allergic Reaction Time Seen by Provider: 02/10/17 18:40 ED Past Medical Hx - Past Medical History Previous Medical History?: No Additional medical history: vaginal delivery x 4 - Surgical History Past Surgical History?: No - Social History Smoking Status: Never Smoker Substance Use Type: None - Medications Home Medications: Home Medications Medication Instructions Recorded Confirmed Last Taken Type Ibuprofen [Motrin 600 MG tab] 600 mg PO Q8H PRN #15 tablet 03/19/16 Unknown Rx methOCARBAMOL [Robaxin TAB] 500 mg PO BID #15 tab 03/19/16 Unknown Rx Levofloxacin [Levaquin] 750 mg PO QDAY #5 tablet 03/23/16 Unknown Rx Levofloxacin [Levaquin TAB] 750 mg PO QDAY #7 tablet 02/08/17 Unknown Rx ED Review of Systems ROS: Stated complaint: ALLERGIC REACTION Other details as noted in HPI Physical Exam - Physical Exam Vital Signs: Vital Signs 02/10/17 16:46 Temperature 98.2 F Pulse Rate 78 Respiratory 18 Rate Blood Pressure 93/50 O2 Sat by Pulse 100 Oximetry ED Course Vital Signs 02/10/17 16:46 Temperature 98.2 F Pulse Rate 78 Respiratory 18 Rate Blood Pressure 93/50 O2 Sat by Pulse 100 Oximetry Critical care attestation.: If time is entered above; I have spent that time in minutes in the direct care of this critically ill patient, excluding procedure time. ED Disposition Condition: Stable Referrals: PRIMARY CARE, [Primary Care Provider] - 3-5 Days
--- NOTE | 2017-02-10 18:41 | Emergency Department Report ---
ED Rash HPI - HPI Chief Complaint: Allergic Reaction Stated Complaint: ALLERGIC REACTION Time Seen by Provider: 02/10/17 18:40 Duration: 2 Days Location: Head, Neck, Chest, Back, Abdomen, Other (face) Suspected Cause: Medication Rash Symptoms: Yes Itching, No Facial Swelling, No Tongue/Oral Swelling, No Breathing Difficulties, No Choking Sensation, No Wheezing/Dyspnea, No Peeling, No Blistering, No Fever, No Lightheaded, No Malaise, No Myalgias Severity: moderate Other History: in er the other day. tx for uti. on levaquin. took levaquin yest. then developed rash. has had before per chart; but pt denies. did not take today. rash suggestive of drug rx. pt denies any uti s/s. no vag dc. vss. non toxic. no fever. non ill ED Review of Systems ROS: Stated complaint: ALLERGIC REACTION Other details as noted in HPI Comment: All other systems reviewed and negative Gastrointestinal: denies: abdominal pain, nausea, vomiting, diarrhea, constipation, hematochezia Genitourinary: denies: urgency, dysuria, frequency, hematuria, discharge Musculoskeletal: denies: back pain, joint swelling, arthralgia Skin: as per HPI. denies: rash, lesions ED Past Medical Hx - Past Medical History Previous Medical History?: No Additional medical history: vaginal delivery x 4 - Surgical History Past Surgical History?: No - Family History Family history: no significant - Social History Smoking Status: Never Smoker Substance Use Type: None - Medications Home Medications: Home Medications Medication Instructions Recorded Confirmed Last Taken Type Sulfamethoxazole/Trimethoprim 1 each PO BID #6 tablet 02/10/17 Unknown Rx [Bactrim DS TAB] methylPREDNISolone [Medrol] 4 mg PO DAILY #1 tab.ds.pk 02/10/17 Unknown Rx Rash Exam - Exam General: Vital signs noted. No distress. Alert and acting appropriately. HEENT: No Periorbital Edema, No Conjuctival Injection, No Chemosis, No Perioral Edema, No Tongue Edema, No Uvular Edema, No Compromised Airway, No Drooling Lungs: Yes Good Air Exchange, No Wheezes, No Ronchi, No Stridor, No Cough, No Labored Respirations, No Retractions, No Use of Accessory Muscles, No Other Abnormal Lung Sounds Heart: Yes Regular, No Murmur Skin: Yes Urticarial Rash, No Maculopapular Rash, No Morbilliform rash, No Bulla (e), No Excoriations, No Weeping, No Tenderness, No Erythema, No Edema, No Encrustations, No Other Other: Positive: Abdomen Normal, Neurologic Normal, Musculoskeletal Normal ED Course Vital Signs 02/10/17 16:46 Temperature 98.2 F Pulse Rate 78 Respiratory 18 Rate Blood Pressure 93/50 O2 Sat by Pulse 100 Oximetry - Reevaluation(s) Reevaluation #1: 02/10/17 19:01 TO ER W RASH SHE THINKS IT IS LEVAQUIN ABC INTACT MEDICATED DC HOME W DC POC NO URINARY S/S NO FEVER NO CVA ED Medical Decision Making - Medical Decision Making see note - Differential Diagnosis rash Critical care attestation.: If time is entered above; I have spent that time in minutes in the direct care of this critically ill patient, excluding procedure time. ED Disposition Clinical Impression: Allergic reaction, Rash Disposition: DC-01 TO HOME OR SELFCARE Is pt being admited?: No Does the pt Need Aspirin: No Condition: Stable Instructions: Urticaria (ED) Additional Instructions: report levaquin as allergy follow up with Dr Al or Derm See below meds as ordered here tonight your UTI was severe so we need to change the antibiotic- take until gone. follow up obgyn if return of your urinary symptoms OVER THE COUNTER BENADRYL FOR ITCHING Prescriptions: methylPREDNISolone [Medrol] 4 mg PO DAILY #1 tab.ds.pk Sulfamethoxazole/Trimethoprim [Bactrim DS TAB] 1 each PO BID #6 tablet Referrals: SYLVIA AL MD [Staff Physician] - 3-5 Days Time of Disposition: 18:41
== END 2017-02-10 19:09 | disposition home or self-care (01) ==
LOC: ED 16:40
DX: T78.40XA Allergy, unspecified, initial encounter (principal); R21 Rash and other nonspecific skin eruption; Y92.89 Other specified places as the place of occurrence of the external cause
CPT/HCPCS: 99282; J7512

== ENCOUNTER 2017-06-06 16:35 | Emergency (ER) | payer SELFPAY ==
[2017-06-06 17:14] VITALS: BP 110/60
[2017-06-06 17:43] LABS: Bilirubin,Urine NEG (Negative); Blood,Urine NEG (Negative); Color,Urine Yellow (Yellow); Mucus,Urine FEW /HPF; Protein,Urine <15 mg/dL mg/dL (Negative)
[2017-06-06] MEDS ORDERED: REGLAN ONE (18:17)
[2017-06-06] MEDS ORDERED: REGLAN PO ONE (18:19)
--- NOTE | 2017-06-06 18:25 | Emergency Department Report ---
ED General Adult HPI - General Chief complaint: Nausea/Vomiting/Diarrhea Stated complaint: NAUSEA Time Seen by Provider: 06/06/17 18:19 Source: patient Mode of arrival: Ambulatory Limitations: No Limitations - History of Present Illness Initial comments: Patient is a 32-year-old female no significant past medical history who presents with nausea and vomiting at thing going on for the last couple days. Patient states that her nausea is moderate nothing particularly makes it better or worse. She states that she has no pain no vaginal discharge no dysuria. But she states that she is sexually active. She states that whenever she tries E something she gets nauseous and then vomits it up her vomit is nonbloody nonbilious. No shortness of breath no chest pain. - Related Data Previous Rx's Medication Instructions Recorded Last Taken Type Sulfamethoxazole/Trimethoprim 1 each PO BID #6 tablet 02/10/17 Unknown Rx [Bactrim DS TAB] methylPREDNISolone [Medrol] 4 mg PO DAILY #1 tab.ds.pk 02/10/17 Unknown Rx Metoclopramide [Reglan] 10 mg PO Q8H PRN #20 tab 06/06/17 Unknown Rx Allergies Allergy/AdvReac Type Severity Reaction Status Date / Time levofloxacin [From Levaquin] Allergy Hives Verified 02/10/17 19:07 ED Review of Systems ROS: Stated complaint: NAUSEA Other details as noted in HPI Constitutional: denies: chills, fever Eyes: denies: eye pain, eye discharge, vision change ENT: denies: ear pain, throat pain Respiratory: denies: cough, shortness of breath, wheezing Cardiovascular: denies: chest pain, palpitations Endocrine: no symptoms reported Gastrointestinal: abdominal pain, nausea, vomiting. denies: diarrhea Genitourinary: denies: urgency, dysuria, discharge Musculoskeletal: denies: back pain, joint swelling, arthralgia Skin: denies: rash, lesions Neurological: denies: headache, weakness, paresthesias Psychiatric: denies: anxiety, depression Hematological/Lymphatic: denies: easy bleeding, easy bruising ED Past Medical Hx - Past Medical History Previous Medical History?: Yes Additional medical history: vaginal delivery x 4 - Surgical History Past Surgical History?: No - Social History Smoking Status: Current Every Day Smoker Substance Use Type: Alcohol, Marijuana - Medications Home Medications: Home Medications Medication Instructions Recorded Confirmed Last Taken Type Sulfamethoxazole/Trimethoprim 1 each PO BID #6 tablet 02/10/17 Unknown Rx [Bactrim DS TAB] methylPREDNISolone [Medrol] 4 mg PO DAILY #1 tab.ds.pk 02/10/17 Unknown Rx Metoclopramide [Reglan] 10 mg PO Q8H PRN #20 tab 06/06/17 Unknown Rx ED Physical Exam - General Limitations: No Limitations General appearance: alert, in no apparent distress - Head Head exam: Present: atraumatic, normocephalic - Eye Eye exam: Present: normal appearance - ENT ENT exam: Present: mucous membranes moist - Neck Neck exam: Present: normal inspection - Respiratory Respiratory exam: Present: normal lung sounds bilaterally. Absent: respiratory distress - Cardiovascular Cardiovascular Exam: Present: regular rate, normal rhythm. Absent: systolic murmur, diastolic murmur, rubs, gallop - GI/Abdominal GI/Abdominal exam: Present: soft, normal bowel sounds - Extremities Exam Extremities exam: Present: normal inspection - Back Exam Back exam: Present: normal inspection - Neurological Exam Neurological exam: Present: alert, oriented X3 - Psychiatric Psychiatric exam: Present: normal affect, normal mood - Skin Skin exam: Present: warm, dry, intact, normal color. Absent: rash ED Course Vital Signs 06/06/17 17:11 Temperature 98.6 F Pulse Rate 95 H Respiratory 20 Rate Blood Pressure 110/60 O2 Sat by Pulse 100 Oximetry ED Medical Decision Making - Lab Data Lab Results 06/06/17 06/06/17 Range/Units 17:30 17:31 HCG, Qual Positive (Negative) Urine Color Yellow (Yellow) Urine Turbidity Clear (Clear) Urine pH 7.0 (5.0-7.0) Ur Specific [place] 1.021 (1.003-1.030) Urine Protein <15 mg/dl (Negative) mg/dL Urine Glucose (UA) Neg (Negative) mg/dL Urine Ketones Neg (Negative) mg/dL Urine Blood Neg (Negative) Urine Nitrite Neg (Negative) Urine Bilirubin Neg (Negative) Urine Urobilinogen 2.0 (<2.0) mg/dL Ur Leukocyte Esterase Neg (Negative) Urine WBC (Auto) 1.0 (0.0-6.0) /HPF Urine RBC (Auto) 1.0 (0.0-6.0) /HPF U Epithel Cells (Auto) 1.0 (0-13.0) /HPF Urine Mucus Few /HPF - Medical Decision Making Cdx: ddx: Cystitis, food poisoning I will give patient oral reglan and will get a urine analysis and a urine test. Critical care attestation.: If time is entered above; I have spent that time in minutes in the direct care of this critically ill patient, excluding procedure time. ED Disposition Clinical Impression: Nausea/vomiting in Disposition: DC-01 TO HOME OR SELFCARE Is pt being admited?: No Does the pt Need Aspirin: No Condition: Stable Instructions: Morning Sickness (ED) Prescriptions: Metoclopramide [Reglan] 10 mg PO Q8H PRN #20 tab PRN Reason: Nausea Referrals: PRIMARY CARE, [Primary Care Provider] - 3-5 Days LEON PINZON CNM [Staff Physician] - 3-5 Days DANIELE CAMPOS MD [Staff Physician] - 3-5 Days MICHELLE DIAZ MD [Staff Physician] - 3-5 Days
== END 2017-06-06 18:31 | disposition home or self-care (01) ==
LOC: ED 16:35
DX: O21.0 Mild hyperemesis gravidarum (principal); Z3A.01 Less than 8 weeks gestation of pregnancy
CPT/HCPCS: 36415; 81001; 84703

== ENCOUNTER 2018-01-04 16:55 | Outpatient (CLI) | payer OTHER ==
[2018-01-04 19:27] LABS: Bilirubin,Urine NEG (Negative); Blood,Urine NEG (Negative); Color,Urine Yellow (Yellow); Mucus,Urine FEW /HPF; Protein,Urine <15 mg/dL mg/dL (Negative); Urobilinogen,Urine < 2.0 mg/dL (<2.0); WBC,Urine < 1.0 /HPF (0.0-6.0)
[2018-01-04] MEDS ORDERED: BRETHINE SUB-Q ONE (19:43)
[2018-01-04 19:44] VITALS: BP 112/73
[2018-01-04] MEDS ORDERED: LACTATED RINGERS 500 ML IV ONE (20:00)
[2018-01-04] MEDS ORDERED: LACTATED RINGERS 1,000 ML IV ONE (20:07)
--- NOTE | 2018-01-05 18:00 | Event Note ---
Date: 01/04/18 Triage note for 01/07/2018: 32 year old female presents to L&D triage at 36 weeks, 3 days gestation complaining of contractions. She states she was at work when her contractions began and they worsened over the work day. She denies LOF or VB. She reports active movement. She reports she felt hot and lightheaded for a brief time at work but states both of these symptoms have totally resolved. Patient is well appearing, alert and oriented. Her vital signs are stable. Abdomen is soft, nontender, mild irregular contractions. SVE FT/thick/-4/posterior. No vaginal bleeding or leaking of fluid noted. IV hydration and SQ Brethine were given and patient's contractions resolved. No cervical change on recheck. Patient requested to go home as she was hungry. Patient was found not to be in labor. Patient was discharged home with instructions for pelvic rest and to return if any further symptoms. labor warning signs discussed with patient. Advised patient to follow up at [facility] on Sunday. Pt. voiced understanding of instructions.
== END 2018-01-04 19:20 | disposition home or self-care (01) ==
LOC: TRG 16:55
PROVIDERS: ATTEND Obstetrics & Gynecology
DX: O47.03 False labor before 37 completed weeks of gestation, third trimester (principal); O26.893 Other specified pregnancy related conditions, third trimester; N95.1 Menopausal and female climacteric states; R42 Dizziness and giddiness; Z3A.36 36 weeks gestation of pregnancy
CPT/HCPCS: 59025; 81001; 96360; 96361; 96372; J3105; J7120

== ENCOUNTER 2018-02-25 09:48 | Day surgery (SDC) | payer OTHER ==
--- NOTE | 2018-02-25 10:28 | Short Stay Summary ---
Short Stay Documentation Date of service: 02/25/18 Narrative H&P: 32y/o with undesired fertility. The patient desires permanent sterilization. She declines other contraceptive options. - History Principal diagnosis: Undesired fertility Past Medical History: No medical history Past Surgical History: No surgical history Social history: single - Allergies and Medications Current Medications: Allergies levofloxacin [From Levaquin] Allergy (Verified 02/22/18 10:52) Hives Home Medications Medication Instructions Recorded Confirmed Last Taken Type Ferrous Sulfate 325 mg PO BID #90 tablet. 01/18/18 02/22/18 Unknown Rx - Physical exam General appearance: no acute distress Integumentary: no rash HEENT: Atraumatic Lungs: Clear to auscultation Breasts: deferred Heart: Regular rate Gastrointestinal: normal Female Genitourinary: deferred Rectal Exam: deferred - Brief post op/procedure progress note Date of procedure: 02/25/18 Pre-op diagnosis: Undesired fertility Post-op diagnosis: same Procedure: laparoscopic bilateral tubal ligation with filshie clips Anesthesia: GALO Surgeon: VIOLETA FRAGA Estimated blood loss: none Pathology: none Condition: stable - Hospital course Hospital course: The patient was admitted the day surgery and underwent a laparoscopic bilateral tubal ligation with Filshie clips. Please see operative note for details of surgery. Her postoperative course was uneventful. - Disposition Condition at discharge: Good Disposition: DC-01 TO HOME OR SELFCARE Short Stay Discharge Plan Activity: other (pelvic rest for 1 week) Diet: regular Additional Instructions: Follow-up is not required Follow-up as needed Prescriptions: Ibuprofen [Motrin] 800 mg PO Q8HR PRN #60 tablet PRN Reason: Pain, Mild (1-3) oxyCODONE /ACETAMINOPHEN [Percocet 5/325] 1 tab PO Q6HR PRN #20 tablet PRN Reason: Pain
[2018-02-25 11:00] LABS: Hematocrit 37.2 % (30.3-42.9); Hemoglobin 11.9 gm/dl (10.1-14.3); Mean Corpuscular HGB Conc 32 % (30-34); Mean Corpuscular Volume 86 fl (79-97); Platelet Count 209 K/mm3 (140-440); Red Blood Count 4.34 M/mm3 (3.65-5.03); Red Cell Distribution Width 15.4 % (13.2-15.2)
[2018-02-25] MEDS ORDERED: DILAUDID IV PRN (11:23)
--- NOTE | 2018-02-25 11:23 | Anesthesia Consultation ---
Anesthesia Consult and Med Hx Date of service: 02/25/18 - Airway Anesthetic Teeth Evaluation: Good ROM Head & Neck: Adequate Mental/Hyoid Distance: Adequate Mallampati Class: Class I Intubation Access Assessment: Good - Pulmonary Exam CTA: Yes - Cardiac Exam Cardiac Exam: RRR - Pre-Operative Health Status ASA Pre-Surgery Classification: ASA2 Proposed Anesthetic Plan: General - Pulmonary Hx Smoking: Yes (black and milds) Hx Asthma: No Hx Respiratory Symptoms: No - Cardiovascular System Hx Hypertension: No Hx Heart Attack/AMI: No - Central Nervous System Hx Seizures: No CVA: No - Gastrointestinal Hx Gastroesophageal Reflux Disease: No - Endocrine Hx Renal Disease: No Hx Liver Disease: No Hx Insulin Dependent Diabetes: No Hx Non-Insulin Dependent Diabetes: No Hx Thyroid Disease: No - Other Systems Hx Obesity: Yes - Additional Comments Anesthesia Medical History Comments: No hx anesthetic complications.
--- NOTE | 2018-02-25 11:23 | Anesthesia Day of Surgery ---
Anesthesia Day of Surgery - Day of Surgery Patient Examined: Yes Patient H&P Reviewed: Yes Patient is NPO: Yes
[2018-02-25] MEDS ORDERED: LACTATED RINGERS 1,000 ML IV SCH (12:00)
[2018-02-25] MEDS ORDERED: VERSED IV NR (12:00)
[2018-02-25] MEDS ORDERED: NEURONTIN PO NR (12:00)
[2018-02-25] MEDS ORDERED: ZEMURON IV ONE (12:28)
[2018-02-25] MEDS ORDERED: XYLOCAINE MPF 2% ONE (12:28)
[2018-02-25] MEDS ORDERED: SUBLIMAZE ONE (12:29)
[2018-02-25] MEDS ORDERED: DIPRIVAN 10 MG/ML IV ONE (12:29)
[2018-02-25] MEDS ORDERED: PEPCID IV ONE (12:34)
[2018-02-25] MEDS ORDERED: MARCAINE 0.5% INFILTRATI ONE ×2 (12:39→13:35)
[2018-02-25] MEDS ORDERED: DECADRON ONE (13:26)
[2018-02-25] MEDS ORDERED: BLOXIVERZ ONE (13:27)
[2018-02-25] MEDS ORDERED: ROBINUL ONE (13:27)
--- NOTE | 2018-02-25 13:43 | Operative Report ---
Operative Report Operative Report: Date of surgery: 02/25/2018 Preoperative diagnosis: Unwanted fertility Postoperative diagnosis: Same as above Procedure: Laparoscopic bilateral tubal ligation with Filshie clips Surgeon: Rosa Nowak M.D. Anesthesia: General endotracheal anesthesia Estimated blood loss: None Findings: Normal uterus tubes and ovaries Indication: 32-year-old with undesired fertility. Procedure: The patient was taken to the operating room and given general endotracheal anesthesia without complication. The patient is prepped and draped in a normal sterile fashion. A bivalve speculum was placed in the patient's vagina and a single-tooth tenaculum was placed on the anterior lip of the cervix .A uterine acorn manipulato rwas placed, and the bivalve speculum was then removed. Attention was then turned to the patient's abdomen where a 5 mm infraumbilical skin incision was then made. A Veress needle was placed and peritoneal entry was verified water-filled syringe. Insufflation of the peritoneal cavity was performed with CO2 gas. A 5 mm trocar was placed and the laparoscope was then inserted. The patient was then placed in Trendelenburg. A 7 mm suprapubic skin incision was then made. Under direct visualization a 7 mm trocar was then placed. General survey of the patient's abdomen revealed normal uterus tubes and ovaries. The fallopian tube was then followed out to the fimbriated end. A Filshie clip was placed, on the ampullary portion of the tube. This was performed on the contralateral side as well. The 7 mm trocar was then removed. The pneumoperitoneum was then released. The 5 mm trocar laparoscope was then removed. The skin incisions were then closed with 4-0 Monocryl. The incisions were injected with quarter percent Marcaine. Dressings were applied to the incision. The vaginal instruments were then removed atraumatically. Then successfully extubated and taken to the recovery room. All sponge laps and needle counts were correct 2.
[2018-02-25] MEDS ORDERED: PERCOCET 5/325 PO PRN (14:23)
[2018-02-25 14:43] VITALS: BP 127/79
--- NOTE | 2018-02-25 15:55 | Post Anesthesia Evaluation ---
- Post Anesthesia Evaluation Patient Participated: Yes Airway Patent: Yes Stable Respiratory Function: Yes Nausea/Vomiting: No Temp > 96.8F: Yes Pain Manageable: Yes Adequeate Hydration: Yes Anesthesia Complications: No
== END 2018-02-25 15:15 | disposition home or self-care (01) ==
LOC: OR 09:48
PROVIDERS: ATTEND Obstetrics & Gynecology
DX: Z30.2 Encounter for sterilization (principal); G43.909 Migraine, unspecified, not intractable, without status migrainosus; D64.9 Anemia, unspecified; F17.200 Nicotine dependence, unspecified, uncomplicated; E66.9 Obesity, unspecified; Z68.31 Body mass index [BMI] 31.0-31.9, adult; Z79.899 Other long term (current) drug therapy; Z88.1 Allergy status to other antibiotic agents
CPT/HCPCS: 36415; 58671; 81025; 85027; J1100; J2250; J2704; J2710; J3010; J7120

== ENCOUNTER 2018-08-11 10:05 | Emergency (ER) | payer SELFPAY ==
[2018-08-11 10:13] VITALS: BP 118/79
--- NOTE | 2018-08-11 10:35 | Emergency Department Report ---
ED Female HPI - General Chief complaint: Urogenital-Female Stated complaint: SMELL IN URINE Time Seen by Provider: 08/11/18 10:30 Source: patient Mode of arrival: Ambulatory Limitations: No Limitations - History of Present Illness Initial comments: Ms. Dowling presents with malodorous urine. Denies dysuria. Denies back pain. Denies abdominal pain. Denies fever. Has had UTI or previous dictation. No vaginal discharge. Last nausea. July 18. According to electronic record history of sepsis pyelonephritis. Complaint: other (dark malodorous urine) -: Gradual, days(s) (2) Severity: mild Consistency: constant Improves with: none Worsens with: none Are you Now?: No Associated Symptoms: denies other symptoms - Related Data Previous Rx's Medication Instructions Recorded Last Taken Type Ferrous Sulfate 325 mg PO BID #90 tablet. 01/18/18 02/24/18 17:00 Rx Ibuprofen [Motrin] 800 mg PO Q8HR PRN #60 tablet 02/25/18 Unknown Rx oxyCODONE /ACETAMINOPHEN [Percocet 1 tab PO Q6HR PRN #20 tablet 02/25/18 Unknown Rx 5/325] cephALEXin [Keflex] 500 mg PO Q6HR 7 Days #28 capsule 08/11/18 Unknown Rx Allergies Allergy/AdvReac Type Severity Reaction Status Date / Time levofloxacin [From Levaquin] Allergy Hives Verified 02/22/18 10:52 ED Review of Systems ROS: Stated complaint: SMELL IN URINE Other details as noted in HPI Constitutional: denies: fever, malaise Gastrointestinal: denies: abdominal pain, nausea, vomiting Genitourinary: other (malodorous urine dark) Musculoskeletal: denies: back pain Neurological: denies: headache ED Past Medical Hx - Past Medical History Previous Medical History?: Yes Hx Hypertension: No Hx Heart Attack/AMI: No Hx Congestive Heart Failure: No Hx Diabetes: No Hx Deep Vein Thrombosis: No Hx Liver Disease: No Hx Renal Disease: No Hx Headaches / Migraines: Yes (Migraines) Hx Seizures: No Hx Asthma: No Hx HIV: No Additional medical history: vaginal delivery x 4 - Surgical History Past Surgical History?: No - Social History Smoking Status: Former Smoker Substance Use Type: None - Medications Home Medications: Home Medications Medication Instructions Recorded Confirmed Last Taken Type Ferrous Sulfate 325 mg PO BID #90 tablet.dr 01/18/18 02/25/18 02/24/18 17:00 Rx Ibuprofen [Motrin] 800 mg PO Q8HR PRN #60 tablet 02/25/18 Unknown Rx oxyCODONE /ACETAMINOPHEN [Percocet 1 tab PO Q6HR PRN #20 tablet 02/25/18 Unk nown Rx 5/325] cephALEXin [Keflex] 500 mg PO Q6HR 7 Days #28 capsule 08/11/18 Unknown Rx ED Physical Exam - General Limitations: No Limitations General appearance: alert, in no apparent distress - Head Head exam: Present: atraumatic, normocephalic - Eye Eye exam: Present: normal appearance - ENT ENT exam: Present: mucous membranes moist - Neck Neck exam: Present: normal inspection, full ROM - Respiratory Respiratory exam: Present: normal lung sounds bilaterally. Absent: respiratory distress, wheezes, rales, rhonchi - Cardiovascular Cardiovascular Exam: Present: regular rate, normal rhythm, normal heart sounds. Absent: systolic murmur, diastolic murmur, rubs, gallop - GI/Abdominal GI/Abdominal exam: Present: soft, normal bowel sounds. Absent: distended, tenderness, guarding, rebound - Extremities Exam Extremities exam: Present: normal inspection - Back Exam Back exam: Present: normal inspection. Absent: CVA tenderness (R), CVA te nderness (L), muscle spasm - Neurological Exam Neurological exam: Present: alert, oriented X3 - Psychiatric Psychiatric exam: Present: normal affect, normal mood - Skin Skin exam: Present: warm, dry, intact, normal color. Absent: rash ED Course Vital Signs 08/11/18 10:11 Temperature 98.7 F Pulse Rate 93 H Respiratory 18 Rate Blood Pressure 118/79 O2 Sat by Pulse 100 Oximetry ED Medical Decision Making - Medical Decision Making Ms. Dowling presents with simple UTI. Prescribed 7 days of cephalexin. Critical care attestation.: If time is entered above; I have spent that time in minutes in the direct care of this critically ill patient, excluding procedure time. ED Disposition Clinical Impression: Urinary tract infection Disposition: DC- TO HOME OR SELFCARE Is pt being admited?: No Does the pt Need Aspirin: No Condition: Stable Instructions: Urinary Tract Infection in Women (ED) Prescriptions: cephALEXin [Keflex] 500 mg PO Q6HR 7 Days #28 capsule
[2018-08-11 10:57] LABS: Bacteria,Urine 1+ /HPF (Negative); Bilirubin,Urine NEG (Negative); Blood,Urine NEG (Negative); Color,Urine Yellow (Yellow); Mucus,Urine FEW /HPF; Protein,Urine <15 mg/dL mg/dL (Negative); Urobilinogen,Urine < 2.0 mg/dL (<2.0)
[2018-08-11 10:58] LABS: HCG Qualitative,Urine Negative (Negative)
== END 2018-08-11 10:39 | disposition home or self-care (01) ==
LOC: ED 10:05
DX: N39.0 Urinary tract infection, site not specified (principal); G43.909 Migraine, unspecified, not intractable, without status migrainosus; Z88.1 Allergy status to other antibiotic agents; Z87.891 Personal history of nicotine dependence
CPT/HCPCS: 81001; 81025; 99283

== ENCOUNTER 2018-09-19 07:54 | Emergency (ER) | payer OTHER ==
--- NOTE | 2018-09-19 08:40 | Emergency Department Report ---
ED General Adult HPI - General Chief complaint: Sore Throat Stated complaint: SORE THROAT/BODY PAIN/FEVER Time Seen by Provider: 09/19/18 08:26 Source: patient Mode of arrival: Ambulatory Limitations: No Limitations - History of Present Illness Initial comments: The patient presents to the emergency department with a chief complaint of a sore throat that started yesterday. Patient also complains of a fever as well. Patient denies difficulty swallowing. Patient states that she is not aware of any sick contacts. Patient denies headache, chest pain, shortness of breath. -: Sudden Severity scale (0 -10): 4 Quality: aching Consistency: constant Improves with: cold therapy, rest Worsens with: eating Associated Symptoms: denies: headaches, nausea/vomiting, seizure, shortness of breath Treatments Prior to Arrival: none - Related Data Previous Rx's Medication Instructions Recorded Last Taken Type Ferrous Sulfate 325 mg PO BID #90 tablet. 01/18/18 02/24/18 17:00 Rx Ibuprofen [Motrin] 800 mg PO Q8HR PRN #60 tablet 02/25/18 Unknown Rx oxyCODONE /ACETAMINOPHEN [Percocet 1 tab PO Q6HR PRN #20 tablet 02/25/18 Unknown Rx 5/325] cephALEXin [Keflex] 500 mg PO Q6HR 7 Days #28 capsule 08/11/18 Unknown Rx cephALEXin [Keflex] 500 mg PO Q6HR #28 capsule 09/19/18 Unknown Rx traMADol [Ultram] 50 mg PO Q6HR PRN #20 tablet 09/19/18 Unknown Rx Allergies Allergy/AdvReac Type Severity Reaction Status Date / Time levofloxacin [From Levaquin] Allergy Hives Verified 09/19/18 07:56 ED Review of Systems ROS: Stated complaint: SORE THROAT/BODY PAIN/FEVER Other details as noted in HPI Comment: All other systems reviewed and negative Constitutional: denies: chills, fever Eyes: denies: eye pain, eye discharge, vision change ENT: throat pain. denies: ear pain Respiratory: denies: cough, shortness of breath, wheezing Cardiovascular: denies: chest pain, palpitations Endocrine: no symptoms reported Gastrointestinal: denies: abdominal pain, nausea, diarrhea Genitourinary: denies: urgency, dysuria, discharge Musculoskeletal: denies: back pain, joint swelling, arthralgia Skin: denies: rash, lesions Neurological: denies: headache, weakness, paresthesias Psychiatric: denies: anxiety, depression Hematological/Lymphatic: denies: easy bleeding, easy bruising ED Past Medical Hx - Past Medical History Hx Hypertension: No Hx Heart Attack/AMI: No Hx Congestive Heart Failure: No Hx Diabetes: No Hx Deep Vein Thrombosis: No Hx Liver Disease: No Hx Renal Disease: No Hx Headaches / Migraines: Yes (Migraines) Hx Seizures: No Hx Asthma: No Hx HIV: No Additional medical history: vaginal delivery x 4 - Surgical History Past Surgical History?: No - Social History Smoking Status: Never Smoker - Medications Home Medications: Home Medications Medication Instructions Recorded Confirmed Last Taken Type Ferrous Sulfate 325 mg PO BID #90 tablet. 01/18/18 02/25/18 02/24/18 17:00 Rx Ibuprofen [Motrin] 800 mg PO Q8HR PRN #60 tablet 02/25/18 Unknown Rx oxyCODONE /ACETAMINOPHEN [Percocet 1 tab PO Q6HR PRN #20 tablet 02/25/18 Unknown Rx 5/325] cephALEXin [Keflex] 500 mg PO Q6HR 7 Days #28 capsule 08/11/18 Unknown Rx cephALEXin [Keflex] 500 mg PO Q6HR #28 capsule 09/19/18 Unknown Rx traMADol [Ultram] 50 mg PO Q6HR PRN #20 tablet 09/19/18 Unknown Rx ED Physical Exam - General Limitations: No Limitations General appearance: alert, in no apparent distress - Head Head exam: Present: atraumatic, normocephalic - Eye Eye exam: Present: normal appearance, PERRL, EOMI - ENT ENT exam: Present: other (palatine tonsil infiltrates, erythema and swelling of the palatine tonsils as well) - Neck Neck exam: Present: normal inspection. Absent: tenderness, meningismus, lymphadenopathy - Respiratory Respiratory exam: Present: normal lung sounds bilaterally. Absent: respiratory distress - Cardiovascular Cardiovascular Exam: Present: regular rate, normal rhythm. Absent: systolic murmur, diastolic murmur, rubs, gallop - GI/Abdominal GI/Abdominal exam: Present: soft, normal bowel sounds - Extremities Exam Extremities exam: Present: normal inspection - Back Exam Back exam: Present: normal inspection - Neurological Exam Neurological exam: Present: alert, oriented X3 - Psychiatric Psychiatric exam: Present: normal affect, normal mood - Skin Skin exam: Present: warm, dry, intact, normal color. Absent: rash ED Course Vital Signs 09/19/18 07:57 Temperature 99.9 F H Pulse Rate 108 H Respiratory 18 Rate Blood Pressure 119/70 O2 Sat by Pulse 99 Oximetry ED Medical Decision Making - Medical Decision Making Discussed plan of care with patient Patient has no history of seizures Critical care attestation.: If time is entered above; I have spent that time in minutes in the direct care of this critically ill patient, excluding procedure time. ED Disposition Clinical Impression: Acute tonsillitis Disposition: - TO HOME OR SELFCARE Is pt being admited?: No Does the pt Need Aspirin: No Condition: Stable Instructions: Tonsillitis in Children (ED), Tonsillitis (ED) Additional Instructions: return if worse Prescriptions: cephALEXin [Keflex] 500 mg PO Q6HR #28 capsule traMADol [Ultram] 50 mg PO Q6HR PRN #20 tablet PRN Reason: Pain [facility] [Primary Care Provider] - 3-5 Days [facility] [Provider Group] - 3-5 Days [facility] [Provider Group] - 3-5 Days Forms: Work/School Release Form(ED) Time of Disposition: 08:38
[2018-09-19 08:46] VITALS: BP 118/71
== END 2018-09-19 08:45 | disposition home or self-care (01) ==
LOC: ED 07:54
DX: J03.90 Acute tonsillitis, unspecified (principal); G43.909 Migraine, unspecified, not intractable, without status migrainosus
CPT/HCPCS: 99282

== ENCOUNTER 2018-12-18 19:00 | Emergency (ER) | payer OTHER ==
--- NOTE | 2018-12-18 21:05 | Emergency Department Report ---
ED Female HPI - General Chief complaint: Abdominal Pain Stated complaint: BACK/ABDPAIN/VAGINAL DISCHARGE Time Seen by Provider: 12/18/18 21:02 Source: patient Mode of arrival: Ambulatory Limitations: No Limitations - History of Present Illness Initial comments: Patient is a 33-year-old female that presents emergency room with complaints of lower abdominal pain radiating to her back and vaginal discharge. Patient states her symptoms started 2 days ago. Patient states she is sexually active with one partner. Patient states her last measure. Was 11/29/2018. Patient denies dysuria and fever and chills. Patient states her abdominal pain is a 5 out of 10. Patient states the pain is worse with palpation and movement and better with rest. Patient states that the discharge is a light green discharge. Patient states she has a past medical history of hepatitis B. Patient states she also had a tubal ligation. MD Complaint: vaginal discharge, pelvic pain -: Sudden - Related Data Previous Rx's Medication Instructions Recorded Last Taken Type Ferrous Sulfate 325 mg PO BID #90 tablet. 01/18/18 02/24/18 17:00 Rx oxyCODONE /ACETAMINOPHEN [Percocet 1 tab PO Q6HR PRN #20 tablet 02/25/18 Unknown Rx 5/325] cephALEXin [Keflex] 500 mg PO Q6HR 7 Days #28 capsule 08/11/18 Unknown Rx cephALEXin [Keflex] 500 mg PO Q6HR #28 capsule 09/19/18 Unknown Rx traMADol [Ultram] 50 mg PO Q6HR PRN #20 tablet 09/19/18 Unknown Rx Ibuprofen [Motrin 800 MG tab] 800 mg PO Q8HR PRN #15 tablet 12/19/18 Unknown Rx Allergies Allergy/AdvReac Type Severity Reaction Status Date / Time levofloxacin [From Levaquin] Allergy Hives Verified 09/19/18 07:56 ED Review of Systems ROS: Stated complaint: BACK/ABDPAIN/VAGINAL DISCHARGE Other details as noted in HPI Constitutional: denies: chills, fever Eyes: denies: eye pain, eye discharge, vision change ENT: denies: ear pain, throat pain Respiratory: denies: cough, shortness of breath, wheezing Cardiovascular: denies: chest pain, palpitations Endocrine: no symptoms reported Gastrointestinal: abdominal pain. denies: nausea, diarrhea Genitourinary: discharge. denies: urgency, dysuria Musculoskeletal: denies: back pain, joint swelling, arthralgia Skin: denies: rash, lesions Neurological: denies: headache, weakness, paresthesias Psychiatric: denies: anxiety, depression Hematological/Lymphatic: denies: easy bleeding, easy bruising ED Past Medical Hx - Past Medical History Previous Medical History?: Yes Hx Hypertension: No Hx CVA: No Hx Heart Attack/AMI: No Hx Congestive Heart Failure: No Hx Diabetes: No Hx Deep Vein Thrombosis: No Hx Pulmonary Embolism: No Hx GERD: No Hx Liver Disease: No Hx Renal Disease: No Hx of Cancer: No Hx Sickle Cell Disease: No Hx Arthritis: No Hx Headaches / Migraines: Yes (Migraines) Hx Seizures: No Hx Kidney Stones: No Hx Psychiatric Treatment: No Hx Asthma: No Hx COPD: No Hx Tuberculosis: No Hx Dementia: No Hx HIV: No Additional medical history: vaginal delivery x 5. Hepatitis B - Surgical History Past Surgical History?: No Hx Coronary Stent: No Hx Open Heart Surgery: No Hx Pacemaker: No Hx Internal Defibrillator: No Hx Cholecystectomy: No Hx Appendectomy: No Hx Breast Surgery: No Additional Surgical History: Tubal ligation - Family History Family history: no significant - Social History Smoking Status: Never Smoker Substance Use Type: None - Medications Home Medications: Home Medications Medication Instructions Recorded Confirmed Last Taken Type Ferrous Sulfate 325 mg PO BID #90 tablet. 01/18/18 02/25/18 02/24/18 17:00 Rx oxyCODONE /ACETAMINOPHEN [Percocet 1 tab PO Q6HR PRN #20 tablet 02/25/18 Unknown Rx 5/325] cephALEXin [Keflex] 500 mg PO Q6HR 7 Days #28 capsule 08/11/18 Unknown Rx cephALEXin [Keflex] 500 mg PO Q6HR #28 capsule 09/19/18 Unknown Rx traMADol [Ultram] 50 mg PO Q6HR PRN #20 tablet 09/19/18 Unknown Rx Ibuprofen [Motrin 800 MG tab] 800 mg PO Q8HR PRN #15 tablet 12/19/18 Unknown Rx ED Physical Exam - General Limitations: No Limitations General appearance: alert, in no apparent distress - Head Head exam: Present: atraumatic, normocephalic - Eye Eye exam: Present: normal appearance - ENT ENT exam: Present: mucous membranes moist - Neck Neck exam: Present: normal inspection - Respiratory Respiratory exam: Present: normal lung sounds bilaterally. Absent: respiratory distress - Cardiovascular Cardiovascular Exam: Present: regular rate, normal rhythm. Absent: systolic murmur, diastolic murmur, rubs, gallop - GI/Abdominal GI/Abdominal exam: Present: soft, tenderness (suprapubic tenderness), normal bowel sounds - Rectal Rectal exam: Present: deferred - External exam: Present: normal external exam Speculum exam: Present: erythema, vaginal discharge, cervical discharge. Absent: vaginal bleeding Bi-manual exam: Absent: cervical motion tendernes, adnexal tenderness, adnexal mass, uterine enlargement - Extremities Exam Extremities exam: Present: normal inspection - Back Exam Back exam: Present: normal inspection - Neurological Exam Neurological exam: Present: alert, oriented X3 - Psychiatric Psychiatric exam: Present: normal affect, normal mood - Skin Skin exam: Present: warm, dry, intact, normal color. Absent: rash ED Course Vital Signs 12/18/18 12/19/18 19:07 00:10 Temperature 98.6 F Pulse Rate 102 H 94 H Respiratory 18 Rate Blood Pressure 113/77 Blood Pressure 120/82 [Left] O2 Sat by Pulse 97 100 Oximetry - Reevaluation(s) Reevaluation #1: Pelvic exam done and nurse in the room. 12/18/18 23:16 Reevaluation #2: I discussed all results with patient. I discussed plan of care with patient. Patient states she has want to wait any longer for an ultrasound wants to leave. I discussed the risk of leaving hospital AGAINST MEDICAL ADVICE. Patient voiced understanding of risks. Patient signed AMA. Patient given discharge instructions. Patient voiced understanding of discharge instructions 12/19/18 00:04 ED Medical Decision Making - Lab Data Result diagrams: 12/18/18 21:08 12/18/18 21:08 - Medical Decision Making Patient is a 33-year-old female that presents emergency room with complaints of vaginal discharge and abdominal pain radiating to her back. Patient had a pelvic exam in the ER and was significant finding of copious amounts of light green/white discharge. She states discharge consistent with gonorrhea or chlamydia. Patient's wet prep negative. Due to the fact the patient has tenderness and discomfort in the abdominal region and such copious amounts of discharge, I recommended ultrasound transvaginally and the patient refused due to wait time. I discussed the risk of leaving the hospital without neurovascularly the hospital AMA and the patient voiced understanding. Patient signed AMA and patient left the hospital. Patient was still given treatment and discharge instructions. - Differential Diagnosis STD. Gonorrhea, chlamydia, vaginal discharge. abdominal pain. Critical care attestation.: If time is entered above; I have spent that time in minutes in the direct care of this critically ill patient, excluding procedure time. ED Disposition Clinical Impression: Vaginal discharge, Gonorrhea Abdominal pain Qualifiers: Abdominal location: lower abdomen, unspecified Qualified Code(s): R10.30 - Lower abdominal pain, unspecified Disposition: LEFT AGAINST MED ADVICE Is pt being admited?: No Does the pt Need Aspirin: No Condition: Stable Instructions: Cervicitis (ED), Chlamydia Infection (ED), Sexually Transmitted Diseases (ED), Safe Sex (ED), Gonococcal Urethritis (ED), Abdominal Pain (ED) Additional Instructions: Patient to follow-up with primary care in 2-3 days. Patient to follow-up with field property loss specialist in 2-3 days. Patient to return to ER if condition worsens. Patient to rest. Patient to increase water. Patient to take meds as directed. Patient's take Tylenol or ibuprofen when necessary for pain. avoid sex until cleared by primary care or field property loss specialist. Patient to practice safe sex. Prescriptions: Ibuprofen [Motrin 800 MG tab] 800 mg PO Q8HR PRN #15 tablet PRN Reason: pain Referrals: JOSE ALVARADO MD [Primary Care Provider] - 2-3 Days Time of Disposition: 00:06
[2018-12-18 21:32] LABS: Basophils % (Auto) 0.9 % (0.0-1.8); Eosinophils # (Auto) 0.1 K/mm3 (0.0-0.4); Eosinophils % (Auto) 1.4 % (0.0-4.3); Hematocrit 37.1 % (30.3-42.9); Hemoglobin 12.5 gm/dl (10.1-14.3); Lymphocytes # (Auto) 2.5 K/mm3 (1.2-5.4); Lymphocytes % (Auto) 49.3 % (13.4-35.0); Mean Corpuscular HGB Conc 34 % (30-34); Mean Corpuscular Volume 88 fl (79-97); Monocytes # (Auto) 0.5 K/mm3 (0.0-0.8); Monocytes % (Auto) 10.2 % (0.0-7.3); Platelet Count 199 K/mm3 (140-440); Red Cell Distribution Width 14.5 % (13.2-15.2)
[2018-12-18 21:45] LABS: Alanine Aminotransferase 21 units/L (7-56); Albumin 4.2 g/dL (3.9-5); BUN/Creatinine Ratio 13; Blood Urea Nitrogen 9 mg/dL (7-17); Calcium 8.9 mg/dL (8.4-10.2); Hemolysis Index 12
[2018-12-18 21:46] LABS: Bilirubin,Direct < 0.2 mg/dL (0-0.2)
[2018-12-19] MEDS ORDERED: LIDOCAINE-MPF (1%) 10 MG/1 ML VIAL 5 ML INFILTRATI ONE (00:03)
[2018-12-19] MEDS ORDERED: AZITHROMYCIN 250 MG TAB PO ONE (00:04)
[2018-12-19 00:37] VITALS: BP 120/82
== END 2018-12-19 00:15 | disposition left against medical advice (07) ==
LOC: ED 19:00
DX: A54.9 Gonococcal infection, unspecified (principal); G43.909 Migraine, unspecified, not intractable, without status migrainosus; Z98.51 Tubal ligation status
CPT/HCPCS: 36415; 80048; 80076; 84703; 85025; 87210; 87591; 96372; 99284; J0696

== ENCOUNTER 2018-12-19 19:27 | Emergency (ER) | payer SELFPAY ==
[2018-12-19] MEDS ORDERED: IBUPROFEN 600 MG TAB PO ONE (20:17)
--- NOTE | 2018-12-19 20:18 | Event Note ---
ED Screening Note Date of service: 12/19/18 Time: 20:16 ED Screening Note: 33 y/o female comes in for right arm pain that started today. Has not taking anything for pain. 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 Pain throbbing and sharp. This initial assessment/diagnostic orders/clinical plan/treatment(s) is/are subject to change based on patients health status, clinical progression and re- assessment by fellow clinical providers in the ED. Further treatment and workup at subsequent clinical providers discretion. Patient/guardian urged not to elope from the ED as their condition may be serious if not clinically assessed and managed. Initial orders include:
[2018-12-19 20:19] VITALS: BP 117/68
[2018-12-19] MEDS ORDERED: KETOROLAC 10 MG TAB PO ONE (20:42)
--- NOTE | 2018-12-19 20:48 | Emergency Department Report ---
HPI - General Chief Complaint: Extremity Problem,Nontraumatic Time Seen by Provider: 12/19/18 20:15 - HPI HPI: Room 31 The patient is a 33-year-old female presenting with a chief complaint of right forearm pain. The patient states yesterday she developed pain in her right wrist and right forearm that has been gradually worsening. Patient denies any recent trauma. Patient states she did have blood drawn from the right antecubital fossa yesterday but never had an IV placed. Patient denies any skin changes or history of fever. ED Past Medical Hx - Past Medical History Hx Headaches / Migraines: Yes (Migraines) Additional medical history: vaginal delivery x 5. Hepatitis B - Surgical History Additional Surgical History: Tubal ligation - Family History Family history: no significant - Social History Smoking Status: Current Some Day Smoker (Black and milds) Substance Use Type: None (denies illicit drug use) - Medications Home Medications: Home Medications Medication Instructions Recorded Confirmed Last Taken Type Ferrous Sulfate 325 mg PO BID #90 tablet. 01/18/18 02/25/18 02/24/18 17:00 Rx oxyCODONE /ACETAMINOPHEN [Percocet 1 tab PO Q6HR PRN #20 tablet 02/25/18 Unknown Rx 5/325] cephALEXin [Keflex] 500 mg PO Q6HR 7 Days #28 capsule 08/11/18 Unknown Rx cephALEXin [Keflex] 500 mg PO Q6HR #28 capsule 09/19/18 Unknown Rx traMADol [Ultram] 50 mg PO Q6HR PRN #20 tablet 09/19/18 Unknown Rx HYDROcodone/APAP 5-325 [Gaines 1 - 2 each PO Q6HR PRN #14 tablet 12/19/18 Unknown Rx 5/325] Ibuprofen [Motrin 800 MG tab] 800 mg PO Q8HR PRN #15 tablet 12/19/18 Unknown Rx Ibuprofen [Motrin 800 MG tab] 800 mg PO Q8HR PRN #20 tablet 12/19/18 Unknown Rx Metaxalone [Skelaxin] 800 mg PO TID #10 tablet 12/19/18 Unknown Rx ED Review of Systems ROS: Stated complaint: RIGHT ARM PAIN Other details as noted in HPI Constitutional: denies: fever Eyes: denies: eye pain ENT: denies: throat pain Respiratory: no symptoms reported Cardiovascular: denies: chest pain Endocrine: no symptoms reported Gastrointestinal: denies: abdominal pain Genitourinary: denies: dysuria Musculoskeletal: arthralgia, myalgia Neurological: denies: headache Physical Exam - Physical Exam Vital Signs: Vital Signs 12/19/18 12/19/18 19:37 20:17 Temperature 97.7 F 97.7 F Pulse Rate 94 H 93 H Respiratory 20 20 Rate Blood Pressure 117/68 O2 Sat by Pulse 99 100 Oximetry Physical Exam: GENERAL: The patient is well-developed well-nourished female sitting in chair with right arm in a sling. [] HEENT: Normocephalic. Atraumatic. Extraocular motions are intact. Patient has moist mucous membranes. NECK: Supple. Trachea midline CHEST/LUNGS: There is no respiratory distress noted. HEART/CARDIOVASCULAR: Regular. There is no tachycardia. 2+ right radial pulse ABDOMEN: Abdomen is soft, nontender. Patient has normal bowel sounds. There is no abdominal distention. SKIN: There is no rash. There is no edema. There is no diaphoresis. No cell ulitis appreciated NEURO: The patient is awake, alert, and oriented. The patient is cooperative. The patient has no focal neurologic deficits. The patient has normal speech MUSCULOSKELETAL: There is tenderness to palpation of the right forearm. There is no evidence of acute injury. ED Course Vital Signs 12/19/18 12/19/18 19:37 20:17 Temperature 97.7 F 97.7 F Pulse Rate 94 H 93 H Respiratory 20 20 Rate Blood Pressure 117/68 O2 Sat by Pulse 99 100 Oximetry ED Medical Decision Making - Lab Data Result diagrams: 12/19/18 20:44 12/19/18 20:44 Laboratory Tests 12/19/18 12/19/18 20:44 20:44 WBC 4.6 RBC 4.38 Hgb 12.9 Hct 38.6 MCV 88 MCH 30 MCHC 33 RDW 14.7 Plt Count 193 Lymph % (Auto) 39.1 H Crane % (Auto) 11.5 H Eos % (Auto) 0.5 Baso % (Auto) 0.5 Lymph # 1.8 Crane # 0.5 Eos # 0.0 Baso # 0.0 Seg Neutrophils % 48.4 Seg Neutrophils # 2.2 Sodium 136 L Potassium 3.7 Chloride 101.8 Carbon Dioxide 21 L Anion Gap 17 BUN 8 Creatinine 0.5 L Estimated GFR > 60 BUN/Creatinine Ratio 16 Glucose 93 Calcium 9.5 - Radiology Data Radiology results: report reviewed (right wrist x-ray, right forearm x-ray), image reviewed (right wrist x-ray, right forearm x-ray) interpreted by me: Right wrist x-ray-no acute fracture Right forearm x-ray-no acute fracture [address] [address] XRay Report Signed Patient: NEYMAR FERREIRA MR# : [id number] : 1985 Acct:[id number] Age/Sex: 33 / F ADM Date: 12/19/18 Loc: ED Attending Dr: Ordering Physician: TEIRRA BETHEA Date of Service: 12/19/18 Procedure(s): XR wrist 3+V RT Accession Number(s): [id number] cc: TIERRA BETHEA Fluoro Time In Minutes: HISTORY:pain in wrist COMPARISON: None. TECHNIQUE: AP lateral and obliques views were obtained FINDINGS: Bones: No fracture or dislocation. Joint spaces: Maintained. Soft tissues: No significant abnormality. Additional findings: None. IMPRESSION: 1. No significant abnormality. Signer Name: Chung Pinzon MD Signed: 12/19/2018 8:48 PM Workstation Name: [id number] Transcribed By: WG Dictated By: Chung Pinzon MD Electronically Authenticated By: Chung Pinzon MD Signed Date/Time: 12/19/182047 DD/ 47 TD/TT: [address] [address] XRay Report Signed Patient: NEYMAR FERREIRA MR# : [id number] : 1985 Acct:[id number] Age/Sex: 33 / F ADM Date: 12/19/18 Loc: ED Attending Dr: Ordering Physician: TIERRA BETHEA Date of Service: 12/19/18 Procedure(s): XR forearm RT Accession Number(s): [id number] cc: TIERRA BETHEA Fluoro Time In Minutes: HISTORY:pain in distal forearm COMPARISON: None. TECHNIQUE: AP lateral and obliques views were obtained FINDINGS: Bones: No fracture or dislocation. Joint spaces: Maintained. Soft tissues: No significant abnormality. Additional findings: None. IMPRESSION: 1. No significant abnormality. Signer Name: Chung Pinzon MD Signed: 12/19/2018 8:48 PM Workstation Name: [email or web address] Transcribed By: WG Dictated By: Chung Pinzon MD Electronically Authenticated By: Chung Pinzon MD Signed Date/Time: 12/19/182047 DD/ 44 TD/TT: - Differential Diagnosis carpal tunnel syndrome, rhabdomyolysis, occult fracture Critical care attestation.: If time is entered above; I have spent that time in minutes in the direct care of this critically ill patient, excluding procedure time. ED Disposition Clinical Impression: Right forearm pain Disposition: TO HOME OR SELFCARE Is pt being admited?: No Does the pt Need Aspirin: No Condition: Stable Prescriptions: Ibuprofen [Motrin 800 MG tab] 800 mg PO Q8HR PRN #20 tablet PRN Reason: Pain, Moderate (4-6) HYDROcodone/APAP 5-325 [Gaines 5/325] 1 - 2 each PO Q6HR PRN #14 tablet PRN Reason: Pain Metaxalone [Skelaxin] 800 mg PO TID #10 tablet [facility] [Primary Care Provider] - 3-5 Days BRIAN MALONEY MD [Staff Physician] - 3-5 Days (Dr. Maloney is an orthopedic surgeon. Please follow up with him for further evaluation) Time of Disposition: 21:29
--- NOTE | 2018-12-19 20:52 | XRay Report ---
HISTORY:pain in distal forearm COMPARISON: None. TECHNIQUE: AP lateral and obliques views were obtained FINDINGS: Bones: No fracture or dislocation. Joint spaces: Maintained. Soft tissues: No significant abnormality. Additional findings: None. IMPRESSION: 1. No significant abnormality. Signer Name: Chung Pinzon MD Signed: 12/19/2018 8:48 PM Workstation Name: [id number]
--- NOTE | 2018-12-19 20:53 | XRay Report ---
HISTORY:pain in wrist COMPARISON: None. TECHNIQUE: AP lateral and obliques views were obtained FINDINGS: Bones: No fracture or dislocation. Joint spaces: Maintained. Soft tissues: No significant abnormality. Additional findings: None. IMPRESSION: 1. No significant abnormality. Signer Name: Chung Pinzon MD Signed: 12/19/2018 8:48 PM Workstation Name: [id number]
[2018-12-19 21:17] LABS: BUN/Creatinine Ratio 16; Blood Urea Nitrogen 8 mg/dL (7-17); Calcium 9.5 mg/dL (8.4-10.2); Hemolysis Index 16
[2018-12-19 21:24] LABS: Basophils % (Auto) 0.5 % (0.0-1.8); Eosinophils % (Auto) 0.5 % (0.0-4.3); Hematocrit 38.6 % (30.3-42.9); Hemoglobin 12.9 gm/dl (10.1-14.3); Lymphocytes # (Auto) 1.8 K/mm3 (1.2-5.4); Lymphocytes % (Auto) 39.1 % (13.4-35.0); Mean Corpuscular HGB Conc 33 % (30-34); Mean Corpuscular Volume 88 fl (79-97); Monocytes # (Auto) 0.5 K/mm3 (0.0-0.8); Monocytes % (Auto) 11.5 % (0.0-7.3); Platelet Count 193 K/mm3 (140-440); Red Blood Count 4.38 M/mm3 (3.65-5.03); Red Cell Distribution Width 14.7 % (13.2-15.2)
== END 2018-12-19 21:41 | disposition home or self-care (01) ==
LOC: ED 19:27
DX: M79.631 Pain in right forearm (principal); G43.909 Migraine, unspecified, not intractable, without status migrainosus; F17.200 Nicotine dependence, unspecified, uncomplicated; Z88.1 Allergy status to other antibiotic agents; Z86.19 Personal history of other infectious and parasitic diseases; Z98.51 Tubal ligation status
CPT/HCPCS: 36415; 80048; 82550; 85025; 99284